=== PATIENT | male | born 1935 | race Caucasian/White ===

== ENCOUNTER → 2016-09-09 | Outpatient (CLI) | payer OTHER ==
[~2016-09-09] MED LIST: 1-ME1LIQ PO; AMLO5TAB2 PO; ASPI81TA11 OR; ASPI81TA81 PO; ATOR40TA16 PO; BRIN1SUS2 EACH EYE; CHOL5000 PO; FENO48TA PO; HYDR-3533 PO; LIPI40TA PO; LOTE10TA PO; METF500T PO; METO50TA PO; NEXI40CA PO; NEXI40GR PO; PATI1POW3 PO; POLY119S PO; TAMS0.4C4 PO; TAMS0.4C67 PO; TIMO0.5S6 OU; TRAV0.00 EACH EYE; WARF-23 PO; WARF5TAB PO
[2016-09-09 12:43] LABS: MEAN CELL VOLUME 93.5 FL (80.0-100.0); MEAN CORPUSCULAR HEMOGLOBIN 28.8 PG (27.0-34.0); MEAN CORPUSCULAR HGB CONC 30.8 % (32.0-36.0); PLATELET COUNT 540 TH/MM3 (150-450); RED BLOOD COUNT 3.21 MIL/MM3 (4.50-5.90); RED CELL DISTRIBUTION WIDTH 15.2 % (11.6-17.2); REVIEW FLAG FINAL; WHITE BLOOD COUNT 7.4 TH/MM3 (4.0-11.0)
[2016-09-09 13:03] LABS: INTERNATIONAL NORMALIZED RATIO 3.3 RATIO; PROTHROMBIN TIME - PATIENT 38.8 SEC (9.8-11.6)
[2016-09-09 13:19] LABS: BICARBONATE 18.2 MEQ/L (21.0-32.0); POTASSIUM 5.4 MEQ/L (3.5-5.1)
== END ==
LOC: CPRE 12:21
PROVIDERS: ATTEND Surgery
DX: Z01.812 Encounter for preprocedural laboratory examination (principal); N18.6 End stage renal disease
CPT/HCPCS: 36415; 80048; 85027; 85610

== ENCOUNTER 2016-09-24 06:02 | Observation (INO) | payer MEDICARE, OTHER ==
[~2016-09-24] VITALS: Ht 172.7 cm; Wt 70.1 kg
[~2016-09-24 06:02] MED LIST changes: -1-ME1LIQ PO; -ASPI81TA11 OR; -HYDR-3533 PO; -LIPI40TA PO; -LOTE10TA PO; -METF500T PO; -NEXI40CA PO; -POLY119S PO; -TAMS0.4C67 PO; -TIMO0.5S6 OU; -WARF5TAB PO
[2016-09-24] MEDS ORDERED: METOPROLOL TARTRATE 25 MG TAB PO PRN (06:15)
[2016-09-24] MEDS ORDERED: SODIUM CHLORID 0.9% 500 ML IV PRN (06:15)
[2016-09-24] MEDS ORDERED: LACTATED RINGER'S 1000 ML IV PRN (06:15)
[2016-09-24] MEDS ORDERED: CHLORHEXIDINE GLUCONATE 2 % 1 PACK (2 CLOTHS) TOPICAL PRN (06:15)
[2016-09-24] MEDS ORDERED: POVIDONE IODINE 5% (ANTISEPSIS KIT) 4 APPLICATIONS EACH NARE PRN (06:15)
[2016-09-24] MEDS ORDERED: INSULIN HUMAN REGULAR 1,000 UNITS/10 ML VIAL SQ PRN (06:15)
[2016-09-24] MEDS ORDERED: METF500T PO (06:54)
[2016-09-24 06:57] VITALS: BP 162/70; PULSE 60; RESP 20; TEMP 97.7; O2SAT 100
--- NOTE | 2016-09-24 07:00 | PD.VS.PN ---
Pre-operative Note Pre-operative diagnosis: Near ESRD, need for HD access Planned procedure: L UE access (brachiobasilic AVF) Interval History: Pt has persistent chills but no fevers; feels fatigued. Otherwise ready for surgery. Chest is clear; pacer in L chest wall, incision well-healed Heart without murmurs. No L UE rashes Labs: Hct 30 plt 540 K 5.4 repeat INR and K pending from this morning -stopped coumadin 5d ago Blood: none needed EKG: pending Orders: NPO Ancef 2g IV OCTOR Post-operative destination: PACU Operative site marked: Yes Consent: Informed consent has been obtained from Gurpreet Buenrostro. I have explained the procedure in detail and discussed the risks, benefits, and potential complications. All questions have been answered. Patient contact information: Brother [phone] Yasmany Ovalles MD Sep 24, 2016 07:00
[2016-09-24] MEDS ORDERED: HEPARIN SODIUM - IV 10,000 UNITS/10 ML VIAL ONE (07:03)
[2016-09-24] MEDS ORDERED: THROMBIN (TOPICAL) 20,000 UNIT SPRAY KIT ONE (07:03)
[2016-09-24] MEDS ORDERED: ceFAZolin 2 GM PREMIX 50 ML ONE (07:10)
[2016-09-24 07:13] LABS: PROTHROMBIN TIME - PATIENT 11.1 SEC (9.8-11.6)
[2016-09-24] MEDS ORDERED: BUPIVACAINE/EPINEPHRINE 0.5% PF 30 ML VIAL ONE (07:24)
[2016-09-24] MEDS ORDERED: fentaNYL CITRATE 250 MCG/5 ML AMP ONE (07:31)
[2016-09-24] MEDS ORDERED: DEXAMETHASONE SOD PHOS 4 MG/ML VIAL ONE (07:31)
[2016-09-24] MEDS ORDERED: MIDAZOLAM HCL 2 MG/2 ML VIAL ONE (07:31)
[2016-09-24] MEDS ORDERED: FAMOTIDINE 20 MG/2 ML VIAL ONE (07:31)
[2016-09-24] MEDS ORDERED: MORPHINE SULFATE 4 MG/ML INJ IV PRN (08:00)
[2016-09-24] MEDS ORDERED: GLUCAGON 1 MG/ML VIAL OTHER PRN (08:00)
[2016-09-24] MEDS ORDERED: PROTAMINE SULFATE 50 MG/5 ML VIAL IV ONE (08:47)
[2016-09-24] MEDS ORDERED: PROPOFOL 200 MG/20 ML AMP IV ONE (08:47)
[2016-09-24] MEDS ORDERED: ONDANSETRON HCL 4 MG/2 ML VIAL IV PUSH ONE (08:47)
[2016-09-24] MEDS: CHOLECALCIFEROL (VIT D3) 5000 UNIT CAP PO SCH (09:00)
[2016-09-24] MEDS ORDERED: DEXTROSE 50% IN WATER 50 ML SYRINGE IV PRN (09:30)
--- NOTE | 2016-09-24 09:59 | HHI.PR ---
cc: Bryan Gee MD Immediate Post Op Note Procedure Date: Sep 24, 2016 Pre Op Diagnosis: near ESRD, need for HD access Post Op Diagnosis: near ESRD, need for HD access Surgeon: Yasmany Ovalles [facility] Front Office Manager(s): Adam Underwood Procedure: LEFT brachiobasilic AVF Findings: 4mm vein, 5mm artery Additional Information: + thrill in AVF and good radial Doppler signal at conclusion of case Complications: none apparent Specimen(s) removed: none for pathology Estimated blood loss: 50mL Anesthesia: General Drains: None Fluids: 400mL IVF Patient to: PACU Patient Condition: Good Date/Time of Procedure: SEE SURGICAL CARE RECORD Yasmany Ovalles MD Sep 24, 2016 09:59
[2016-09-24] MEDS: INSULIN ASPART SUPPLEMENTAL SCALE SQ SCH ×3 (10:52→21:00)
[2016-09-24] MEDS: HYDROmorphone HCL 2 MG TAB PO PRN ×2 (11:18→15:11)
[2016-09-24] MEDS: amLODIPine BESYLATE 5 MG TAB PO SCH (11:21)
[2016-09-24] MEDS: METOPROLOL TARTRATE 50 MG TAB PO SCH ×2 (11:21→21:24)
[2016-09-24] MEDS: ASPIRIN EC 81 MG TABEC PO SCH (11:25)
[2016-09-24 11:38] VITALS: O2SAT 95
[2016-09-24 12:00] VITALS: BP 153/70; PULSE 61; RESP 16; TEMP 95.8; O2SAT 98
[2016-09-24] MEDS ORDERED: FENOFIBRATE 48 MG TAB PO SCH (12:00)
--- NOTE | 2016-09-24 13:50 | PD.CONS ---
HPI Service Nephrology Consult Requested By Dr. Ovalles Reason for Consult CKD stage 4 Primary Care Physician Evonne Calixto MD History of Present Illness Over 81-year-old white male with history of diabetes, hypertension, chronic kidney disease GFR of 16 for AV fistula creation. Patient underwent the procedure everything went well he's not recovering from the surgery. He denies any chest pain or shortness of breath he still is passing urine. Review of Systems Constitutional: COMPLAINS OF: Fatigue Musculoskeletal: COMPLAINS OF: Joint pain, Muscle aches Past Family Social History Allergies: Coded Allergies: No Known Allergies (Verified , 09/09/16) Past Medical History Diabetes Hypertension Chronic kidney disease stage IV Pacemaker insertion History of kidney stones Past Surgical History Pacemaker Partial gastrectomy Cataract Reported Medications Reported Meds & Active Scripts Active Reported Metformin (Metformin HCl) 500 Mg Tab Unknown Dose PO DAILY With a meal Veltassa (Patiromer Sorbitex Calcium) 16.8 Gm Pow 1 Gm PO DAILY Simbrinza Opth Drops (Brinzolamide-Brimonidine Opth Drops) 1-0.2% Susp 1 Drop EACH EYE Q8HR Travatan Z Opth Drops (Travoprost) 0.004 % Soln 1 Drop EACH EYE HS Aspir-81 (Aspirin) 81 Mg Tabdr 1 Tab PO DAILY Metoprolol Tartrate 50 Mg Tab 50 Mg PO BID Atorvastatin (Atorvastatin Calcium) 40 Mg Tab 40 Mg PO HS Warfarin 5 Mg Tab 5 Mg PO DAILY Tamsulosin (Tamsulosin HCl) 0.4 Mg Cap 0.4 Mg PO HS Vitamin D3 (Cholecalciferol) 5,000 Unit Cap 5,000 Units PO DAILY Nexium (Esomeprazole) 40 Mg Pkt 1 Tab PO DAILY Fenofibrate 48 Mg Tab 48 Mg PO DAILY Amlodipine (Amlodipine Besylate) 5 Mg Tab 5 Mg PO DAILY Active Ordered Medications Current Medications Medications (Trade) Dose Ordered Sig/Sy Route Start Time Stop Time Status Last Admin Lactated Ringer's 1,000 ml @ 30 mls/hr Q24H PRN IV 09/24/16 06:15 09/27/16 06:14 (NS 500 ml Inj) 500 ml @ 30 mls/hr [id number] PRN IV 09/24/16 06:15 09/27/16 06:14 09/24/16 07:00 (Roxicodone) 5 mg Q4H PRN PO 09/24/16 08:00 (Dilaudid) 2 mg Q4H PRN PO 09/24/16 08:00 09/24/16 11:18 (Morphine Inj) 2 mg Q1H PRN IV 09/24/16 08:00 (Heparin Inj) 5,000 units Q8H SQ 09/25/16 10:00 (Norvasc) 5 mg DAILY PO 09/24/16 09:00 09/24/16 11:21 (Ecotrin Ec) 81 mg DAILY PO 09/24/16 09:00 09/24/16 11:25 (Lipitor) 40 mg HS PO 09/24/16 21:00 (Vitamin D3) 5,000 units DAILY PO 09/24/16 09:00 (Tricor) 48 mg DAILY PO 09/24/16 12:00 Hold (Lopressor) 50 mg BID PO 09/24/16 09:00 09/24/16 11:21 (Flomax) 0.4 mg HS PO 09/24/16 21:00 (Coumadin) 5 mg DAILY@1600 PO 09/24/16 16:00 (D50w (Syr) Inj) 50 ml UNSCH PRN IV 09/24/16 09:30 (Glucagon Inj) 1 mg UNSCH PRN OTHER 09/24/16 08:00 (Coumadin Booklet) 1 ONCE ONCE OTHER 09/24/16 16:00 09/24/16 16:01 Family History Noncontributory Social History Denies smoking Use alcohol social Physical Exam Vital Signs Vital Signs Date Time Temp Pulse Resp B/P Pulse Ox O2 Delivery O2 Flow Rate FiO2 09/24/16 12:18 18 09/24/16 12:00 95.8 61 16 153/70 98 09/24/16 11:38 95 21 09/24/16 11:00 97.7 60 20 146/72 95 Room Air 09/24/16 10:45 60 20 148/71 95 Room Air 09/24/16 10:24 97.7 64 20 157/77 98 Nasal Cannula 2 09/24/16 06:57 97.7 60 20 162/70 100 Physical Exam GENERAL: Well-nourished, well-developed patient. SKIN: Warm and dry. HEAD: Normocephalic. EYES: No scleral icterus. No injection or drainage. NECK: Supple, trachea midline. No JVD or lymphadenopathy. CARDIOVASCULAR: Regular rate and rhythm without murmurs, gallops, or rubs. RESPIRATORY: Breath sounds equal bilaterally. No accessory muscle use. GASTROINTESTINAL: Abdomen soft, non-tender, nondistended. EXTREMITIES: No cyanosis, or edema. Incision left arm NEUROLOGICAL: Awake, alert, and oriented x 3. Non-focal. Laboratory Laboratory Tests Test 09/24/16 09/24/16 06:42 07:38 Prothrombin Time 11.1 Prothromb Time International 1.0 Ratio Blood Type A POSITIVE Antibody Screen NEGATIVE Potassium Level 5.4 Result Diagram: 09/24/16 0738 Assessment and Plan Problem List: (1) CKD (chronic kidney disease) stage 4, GFR 15-29 ml/min Plan: Patient is passing urine avoid LR His potassium was 5.4 Monitor in the hospital give Kayexalate Follow BMP AV fistula created good.thrill (2) Diabetes Plan: ckd (3) Arteriovenous fistula for hemodialysis in place, primary Plan: Bryan Benitez MD Sep 24, 2016 13:50
--- NOTE | 2016-09-24 13:59 | EKG ---
Date Performed: 09/24/2016 Time Performed: 06:55:08 PTAGE: 81 years EKG: ELECTRONIC VENTRICULAR PACEMAKER Since previous tracing, no significant change noted ABNORM AL RHYTHM ECG PREVIOUS TRACING : 12/09/2014 02.08 DOCTOR: Avtar Quinn Interpretating Date/Time 09/24/2016 13:57:05
[2016-09-24] MEDS ORDERED: SODIUM POLYSTYRENE SULFONATE SUSP 15 GM/60 ML CUP PO ONE (14:00)
[2016-09-24 16:00] VITALS: BP 144/70; PULSE 58; RESP 16; TEMP 96.8; O2SAT 97
[2016-09-24] MEDS: WARFARIN SOD 5 MG TAB PO SCH (16:38)
[2016-09-24 18:04] LABS: BICARBONATE 14.8 MEQ/L (21.0-32.0); POTASSIUM 6.3 MEQ/L (3.5-5.1)
[2016-09-24 20:00] VITALS: BP 125/64; PULSE 67; RESP 18; TEMP 97.2; O2SAT 95
[2016-09-24 21:00] VITALS: PULSE 62
[2016-09-24] MEDS: ATORVASTATIN 40 MG TAB PO SCH (21:24)
[2016-09-24] MEDS: TAMSULOSIN HCL 0.4 MG CAP PO SCH (21:24)
--- NOTE | 2016-09-24 22:42 | MP ---
cc: CLARE OVALLES MD DATE OF SURGERY 09/24/16 PREOPERATIVE DIAGNOSIS Near end-stage renal disease, needs dialysis access. POSTOPERATIVE DIAGNOSIS Near end-stage renal disease, needs dialysis access. PROCEDURE Left brachial basilic fistula. SURGEON Clare Ovalles MD EDUCATION MANAGERS SURGEON Adam Underwood ANESTHESIA General. INDICATION Mr. Buenrostro is an 81-year-old gentleman with near end-stage renal disease who presents for dialysis access creation. Preoperative imaging suggested he had an adequate left basilic vein. He is taken to the operating room for this procedure. DESCRIPTION OF PROCEDURE Informed consent was obtained from the patient. He was taken to the operating room and placed supine on the operating room table. An appropriate time-out was taken to ensure the patient's identity, operative site and planned procedure. Two grams of Ancef_ was initiated prior to skin incision, will be discontinued after single preoperative dose. Everyone in the room agreed to time-out and we proceeded. His left arm was prepped and draped. An incision was made along the medial aspect of the upper arm, carried down to the subcutaneous tissue with electrocautery. Basilic vein was identified and dissected free for several centimeters. Dissection continued in its entirety from the antecubitum up to the axilla. It appeared to be adequate size. Side branches were ligated with 3-0 silk. The vein was marked for inpatient clamped distally and the distal end was oversewn. The vein was flushed and noted to be hemostatic. The brachial artery was identified on the medial aspect of the incision and dissected free. A tunnel was then created and the vein was passed through the tunnel. The vein, however, had an area of weakening and did not pass through the tunnel intact. As such, an incision made to just elevate it in the brachial basilic location. The patient was systemically heparinized and the proximal and distal control of the brachial artery was obtained with profunda clamps and a longitudinal arteriotomy was made with an 11 blade and extended with Rock scissors. The vein was spatulated from end-to-side to the brachial artery with 6-0 Prolene suture. At the completion it was flushed and noted to be hemostatic. The clamps were released. There was a nice thrill in the fistula and a nice Doppler signal in the wrist. The tissue was closed beneath the fistula thereby bringing the fistula close to the skin and the tissue above the fistula was closed with 3-0 Polysorb and 4-0 Monocryl. The sponge and needle counts were correct at the end of the case and I was present and scrubbed for the entire procedure. MD MILLA Curry/HAILEE /5:57 PM /10:16 PM NALINI
[2016-09-25] VITALS: BP 131/66; PULSE 66; RESP 16; TEMP 97.4; O2SAT 97
[2016-09-25] MEDS: HYDROmorphone HCL 2 MG TAB PO PRN ×3 (00:24→20:06)
[2016-09-25 05:28] LABS: BICARBONATE 14.8 MEQ/L (21.0-32.0)
[2016-09-25] MEDS: INSULIN ASPART SUPPLEMENTAL SCALE SQ SCH ×4 (06:45→21:45)
--- NOTE | 2016-09-25 07:36 | PD.VS.PN ---
Subjective POD #: 1 Procedure(s): L brachiobasilic AVF Subjective/Hospital Course c/o arm swelling, worse overnight No hand pain except arm swelling Objective Vitals/I&O Date Time Temp Pulse Resp B/P Pulse Ox O2 Delivery O2 Flow Rate FiO2 09/25/16 00:00 97.4 66 16 131/66 97 09/24/16 21:00 62 09/24/16 20:00 97.2 67 18 125/64 95 09/24/16 16:11 18 09/24/16 16:00 96.8 58 16 144/70 97 09/24/16 12:00 95.8 61 16 153/70 98 09/24/16 11:38 95 21 09/24/16 11:00 97.7 60 20 146/72 95 Room Air 09/24/16 10:45 60 20 148/71 95 Room Air 09/24/16 10:24 97.7 64 20 157/77 98 Nasal Cannula 2 Exam: L UE with edematous arm from axilla to fingers No hematoma + thrill Incision ok Laboratory Laboratory Tests Test 09/24/16 09/24/16 09/25/16 07:38 16:53 03:48 Potassium Level 5.4 6.3 5.0 Sodium Level 139 140 Chloride Level 113 112 Carbon Dioxide Level 14.8 14.8 Anion Gap 11 13 Blood Urea Nitrogen 71 69 Creatinine 4.26 4.23 Estimat Glomerular Filtration 13 14 Rate Random Glucose 183 120 Calcium Level 8.4 8.2 Assessment and Plan Plan Patent AVF. I suspect the swelling is normal post surgical and exaggerated b/c of ipsilateral pacer obstructing venous return. 1. I wrapped his arm gently this morning and would like for him to get PT to maximize mobility of the arm. 2. Elevation of the arm when not using it 3. Appreciate nephrology input 4. D/c later today vs tomorrow, up to the patient. Yasmany Ovalles MD Sep 25, 2016 07:35
[2016-09-25 08:00] VITALS: BP 151/75; PULSE 67; RESP 19; TEMP 96.9; O2SAT 99
[2016-09-25] MEDS: CHOLECALCIFEROL (VIT D3) 5000 UNIT CAP PO SCH (08:36)
[2016-09-25] MEDS: amLODIPine BESYLATE 5 MG TAB PO SCH (08:36)
[2016-09-25] MEDS: METOPROLOL TARTRATE 50 MG TAB PO SCH ×2 (08:37→20:06)
[2016-09-25] MEDS: ASPIRIN EC 81 MG TABEC PO SCH (08:37)
[2016-09-25 08:40] VITALS: PULSE 63
[2016-09-25] MEDS: HEPARIN SODIUM - SQ 10,000 UNITS/ML VIAL SQ SCH ×2 (10:07→17:48)
[2016-09-25] MEDS ORDERED: ONDANSETRON HCL 4 MG/2 ML VIAL IV PUSH PRN (11:15)
--- NOTE | 2016-09-25 13:09 | HHI.NPPN ---
Subjective History of Present Illness 81 year old male with CKD 4 has AVF left arm Additional Remarks c/o nausea Review of Systems General Constitutional: Fatigue Cardiovascular Cardiac: Edema Gastrointestinal Gastrointestinal: Nausea & Vomiting Objective Data Data 09/24/16 09/25/16 19:00 07:00 Intake Total 650 ml Output Total 400 ml 400 ml Balance 250 ml -400 ml Intake Oral 220 ml IV Total 30 ml Other 400 ml Output Urine Total 350 ml 400 ml Estimated Blood Loss 50 ml # Bowel Movements 0 Vital Signs Date Time Temp Pulse Resp B/P Pulse Ox O2 Delivery O2 Flow Rate FiO2 09/25/16 08:40 63 09/25/16 08:00 96.9 67 19 151/75 99 09/25/16 00:00 97.4 66 16 131/66 97 09/24/16 21:00 62 09/24/16 20:00 97.2 67 18 125/64 95 09/24/16 16:11 18 09/24/16 16:00 96.8 58 16 144/70 97 -: 09/25/16 0348 Physical Exam General Appearance: Well Developed Neck Neck Exam: Neck Supple Pulmonary Resp Exam: Clear Bilaterally, Breath Sounds Equal Cardiology CV Exam: Regular Gastrointestinal/Abdomen GI Exam: Soft, Non-Tender, Bowel Sounds Present Extremeties Extremities Exam: Moderate Edema (left arm positive thrill) Assessment/Plan Problem List: (1) CKD (chronic kidney disease) stage 4, GFR 15-29 ml/min Plan: Patient is passing urine avoid LR He had Kayexalate K 5 give Reglan for nausea AV fistula created good.thrill (2) Diabetes Plan: ckd (3) Arteriovenous fistula for hemodialysis in place, primary Plan: Bryan Benitez MD Sep 25, 2016 13:09
[2016-09-25] MEDS: METOCLOPRAMIDE HCL 10 MG/2 ML VIAL IV PUSH SCH ×2 (14:31→20:05)
[2016-09-25 16:00] VITALS: BP 154/74; PULSE 69; RESP 20; TEMP 97.2; O2SAT 97
[2016-09-25] MEDS: WARFARIN SOD 5 MG TAB PO SCH (16:20)
[2016-09-25 20:00] VITALS: BP 110/58; PULSE 68; RESP 20; TEMP 97.8; O2SAT 96
[2016-09-25] MEDS: TAMSULOSIN HCL 0.4 MG CAP PO SCH (20:05)
[2016-09-25] MEDS: ATORVASTATIN 40 MG TAB PO SCH (20:06)
[2016-09-25 21:00] VITALS: PULSE 66
[2016-09-26] VITALS: BP 118/66; PULSE 66; RESP 20; TEMP 97.9; O2SAT 98
[2016-09-26] MEDS: HEPARIN SODIUM - SQ 10,000 UNITS/ML VIAL SQ SCH ×2 (02:10→09:43)
[2016-09-26 04:00] VITALS: BP 140/73; PULSE 70; RESP 20; TEMP 97.3; O2SAT 96
[2016-09-26] MEDS: HYDROmorphone HCL 2 MG TAB PO PRN (04:25)
[2016-09-26] MEDS: METOCLOPRAMIDE HCL 10 MG/2 ML VIAL IV PUSH SCH (04:26)
[2016-09-26] MEDS: INSULIN ASPART SUPPLEMENTAL SCALE SQ SCH ×2 (04:30→11:28)
[2016-09-26 07:30] VITALS: BP 148/72; PULSE 70; RESP 20; TEMP 96.9; O2SAT 97
[2016-09-26 09:00] VITALS: PULSE 70
--- NOTE | 2016-09-26 09:22 | PD.VS.PN ---
Subjective POD #: 2 Procedure(s): L brachiobasilic AVF Subjective/Hospital Course Pt denies nausea or vomiting Pt w/ improved swelling to LUE Pt denies hand pain B UE warm w/ motor intact Objective Vitals/I&O Date Time Temp Pulse Resp B/P Pulse Ox O2 Delivery O2 Flow Rate FiO2 09/26/16 07:30 96.9 70 20 148/72 97 09/26/16 04:00 97.3 70 20 140/73 96 09/26/16 00:00 97.9 66 20 118/66 98 09/25/16 21:00 66 09/25/16 20:00 97.8 68 20 110/58 96 09/25/16 16:00 97.2 69 20 154/74 97 09/26/16 09/26/16 09/26/16 06:59 14:59 22:59 Intake Total 120 ml 120 ml Output Total 350 ml Balance -230 ml 120 ml Exam: GENERAL: A&OX3,NAD,GCS15 SKIN: Warm and dry/ Incision to LUE intact with surgical glue/ NO Hematoma/ drainage. Erythema present at the incision line MUSCULOSKELETAL: 1+ edema LUE, UE warm w/ motor intact Bilat palpable Radial pulses + Thrill palpable near AVF Assessment and Plan Assessment: (1) Arteriovenous fistula for hemodialysis in place, primary Status: Acute Plan Patent AVF. I suspect the swelling is normal post surgical and exaggerated b/c of ipsilateral pacer obstructing venous return. Plan Pt reported he is ready to go home No Nausea/Vomiting/hand pain Pt w/ improved LUE swelling D/C this am Arranged post op follow up Reanna RINCON [facility] [phone] Discharge Planning AM Reanna Perkins Sep 26, 2016 09:22
[2016-09-26] MEDS ORDERED: OXYC-392 PO (09:26)
--- NOTE | 2016-09-26 09:33 | PD.VS.DC ---
Discharge Summary Admission Date: Sep 24, 2016 at 07:57 Discharge Date: Sep 26, 2016 Admission Diagnosis: (1) Arteriovenous fistula for hemodialysis in place, primary Discharge Diagnosis: (1) Arteriovenous fistula for hemodialysis in place, primary Status: Acute Brief History from admission Pt near ESRD, need for HD access Procedure(s): L brachiobasilic AVF Significant Findings GENERAL: A&OX3,NAD,GCS15 SKIN: Warm and dry/ Incision to LUE intact with surgical glue/ NO Hematoma/ drainage. Erythema present at the incision line MUSCULOSKELETAL: 1+ edema LUE, UE warm w/ motor intact Bilat palpable Radial pulses + Thrill palpable near AVF Laboratory Tests Test 09/24/16 09/24/16 09/25/16 07:38 16:53 03:48 Potassium Level 5.4 MEQ/L 6.3 MEQ/L (3.5-5.1) (3.5-5.1) Chloride Level 113 MEQ/L 112 MEQ/L (98-107) (98-107) Carbon Dioxide Level 14.8 MEQ/L 14.8 MEQ/L (21.0-32.0) (21.0-32.0) Blood Urea Nitrogen 71 MG/DL (7-18) 69 MG/DL (7-18) Creatinine 4.26 MG/DL 4.23 MG/DL (0.60-1.30) (0.60-1.30) Estimat Glomerular Filtration 13 ML/MIN (>89) 14 ML/MIN (>89) Rate Random Glucose 183 MG/DL 120 MG/DL (74-106) (74-106) Calcium Level 8.4 MG/DL 8.2 MG/DL (8.5-10.1) (8.5-10.1) Hospital Course: Pt is a 81/M with a hx of near ESRD and in need for HD access Pt s/p Left AVF Pt w/o complications Pt denies hand pain Allergies Coded Allergies Type Severity Reaction Last Updated Verified No Known Allergies 09/09/16 Yes /// 05:59 17:59 05:59 17:59 05:59 17:59 Intake Total 650 ml 720 ml 240 ml 240 ml Output Total 400 ml 400 ml 700 ml 575 ml 150 ml Balance 250 ml -400 ml 20 ml -335 ml 90 ml Intake Oral 220 ml 720 ml 240 ml 240 ml IV Total 30 ml Other 400 ml Output Urine Total 350 ml 400 ml 700 ml 575 ml 150 ml Estimated Blood Loss 50 ml # Bowel Movements 0 0 Laboratory Tests Test 09/24/16 09/24/16 09/24/16 09/25/16 06:42 07:38 16:53 03:48 Prothrombin Time 11.1 SEC Prothromb Time International 1.0 RATIO Ratio Blood Type A POSITIVE Antibody Screen NEGATIVE Potassium Level 5.4 MEQ/L 6.3 MEQ/L 5.0 MEQ/L Sodium Level 139 MEQ/L 140 MEQ/L Chloride Level 113 MEQ/L 112 MEQ/L Carbon Dioxide Level 14.8 MEQ/L 14.8 MEQ/L Anion Gap 11 MEQ/L 13 MEQ/L Blood Urea Nitrogen 71 MG/DL 69 MG/DL Creatinine 4.26 MG/DL 4.23 MG/DL Estimat Glomerular Filtration 13 ML/MIN 14 ML/MIN Rate Random Glucose 183 MG/DL 120 MG/DL Calcium Level 8.4 MG/DL 8.2 MG/DL Procedure Category Date Status Time Type And Screen BBK 09/24/16 Complete 06:06 Prothrombin Time / LAB 09/24/16 Complete Inr (Pt) 06:06 Electrocardiogram CAV 09/24/16 Resulted Lactated Ringer's MED 09/24/16 Complete 1000 Ml Inj (Lr 1000 M 06:15 Sodium Chlorid 0.9% MED 09/24/16 In Process 500 Ml Inj (Ns 500 M 06:15 Metoprolol Tartrate MED 09/24/16 In Process (Lopressor) 06:15 Povidone Iod 5% MED 09/24/16 In Process Antisepsis Kit 06:15 Chlorhexidine 2% MED 09/24/16 In Process Cloth (Chlorhexidine 06:15 Insulin Human Regular MED 09/24/16 In Process Inj (Novolin R Inj 06:15 Heparin Inj (Heparin MED 09/24/16 Complete Inj) 07:03 Thrombin Top Willis MED 09/24/16 Complete (Thrombin Top Willis) 07:03 Cefazolin 2 Gm Premix MED 09/24/16 Complete (Ancef 2 Gm Premix 07:10 Bupivacaine-Epi Pf MED 09/24/16 Complete 0.5% Inj (Sensorcaine 07:24 Midazolam Inj (Versed MED 09/24/16 Complete Inj) 07:31 Fentanyl Inj MED 09/24/16 Complete (Fentanyl Inj) 07:31 Dexamethasone Inj MED 09/24/16 Complete (Decadron Inj) 07:31 Famotidine Inj MED 09/24/16 Complete (Pepcid Inj) 07:31 Potassium, Serum (K) LAB 09/24/16 Complete 07:36 Place In Observation ADMITTING 09/24/16 Transmitted Code Status CODE 09/24/16 Transmitted 07:54 Manager Clinical Pharmacy / RD 09/24/16 In Process Telemetry 07:54 [address] Rachel [address] 09/24/16 In Process 07:[address] Mark SULTANA 09/24/16 In Process 07:[address] 09/24/16 In Process 07:54 Basic Metabolic Panel LAB 09/24/16 Complete (Bmp) 12:00 Basic Metabolic Panel LAB 09/25/16 Complete (Bmp) 06:00 Consult Nephrology CONS 09/24/16 Transmitted Oxycodone (Roxicodone) MED 09/24/16 In Process 08:00 Hydromorphone MED 09/24/16 In Process (Dilaudid) 08:00 Morphine Inj MED 09/24/16 In Process (Morphine Inj) 08:00 Amlodipine (Norvasc) MED 09/24/16 In Process 09:00 Aspirin Ec (Ecotrin MED 09/24/16 In Process Ec) 09:00 Atorvastatin (Lipitor) MED 09/24/16 In Process 21:00 Cholecalciferol MED 09/24/16 In Process (Vitamin D3) 09:00 Fenofibrate (Tricor) MED 09/24/16 In Process 12:00 Metoprolol Tartrate MED 09/24/16 In Process (Lopressor) 09:00 Tamsulosin (Flomax) MED 09/24/16 In Process 21:00 Warfarin (Coumadin) MED 09/24/16 In Process 16:[address] 09/24/16 In Process (Criteria) 07:57 Hypoglycemia 70 Mg/Dl RD 09/24/16 In Process Or < 07:57 Notify Criselda SULTANA 09/24/16 In Process 07:57 Glucagon Inj MED 09/24/16 In Process (Glucagon Inj) 08:00 Insulin Aspart MED 09/24/16 In Process Supplemtl Scale 11:00 (Hub Use Only)Inp Phy CONS 09/24/16 Transmitted Cons/Ref Warfarin (Coumadin) MED 09/24/16 Complete Pt Teach (Coumadin B 16:00 Dextrose 50% In [place] MED 09/24/16 In Process (Syr) Inj (D50w (Syr 09:30 Equip, Iv Pump Use Of SPD 09/24/16 Logged 11:01 Class Iv Pacu Ea 30 [facility] 09/24/16 Complete MIN [facility]16 Complete Post Anesthesia [facility]xygen [facility] 09/24/16 Complete Bedside Glucose [facility] 09/24/[address] 09/24/16 In Process ^ Sling RD 09/24/16 In Process Resp Oxygen Kemal C RSP 09/24/16 Complete Titrat 1-4 L Heparin Inj (Heparin MED 09/25/16 In Process Inj) 10:00 [facility] [place]16 Complete Diet Diabetic DIET 09/24/16 Transmitted Lunch Sodium Polysty MED 09/24/16 Complete Sulfate Liq 14:00 Sling Cradle Arm ORTHO 09/25/16 Complete Consult Pt Eval & Tx PT 09/25/16 Logged OOB 07:33 (Hub Use Only)Inp Phy CONS 09/25/16 Transmitted Cons/Ref Propofol 200 Mg/20 Ml MED 09/24/16 Complete Inj (Diprivan 200 08:47 Ondansetron Inj MED 09/24/16 Complete (Zofran Inj) 08:47 Protamine Sulfate Inj MED 09/24/16 Complete (Protamine Sulfate 08:47 Ondansetron Inj MED 09/25/16 In Process (Zofran Inj) 11:15 Metoclopramide Inj MED 09/25/16 In Process (Reglan Inj) 14:00 Attending Discharge DISCHARGE 09/26/16 Transmitted Order Vital Signs Date Time Temp Pulse Resp B/P Pulse Ox O2 Delivery O2 Flow Rate FiO2 09/26/16 07:30 96.9 70 20 148/72 97 09/26/16 04:00 97.3 70 20 140/73 96 09/26/16 00:00 97.9 66 20 118/66 98 09/25/16 21:00 66 09/25/16 20:00 97.8 68 20 110/58 96 09/25/16 16:00 97.2 69 20 154/74 97 09/25/16 08:40 63 09/25/16 08:03 19 09/25/16 08:00 96.9 67 19 151/75 99 09/25/16 00:00 97.4 66 16 131/66 97 09/24/16 21:00 62 09/24/16 20:00 97.2 67 18 125/64 95 09/24/16 16:00 96.8 58 16 144/70 97 09/24/16 12:00 95.8 61 16 153/70 98 09/24/16 11:38 95 21 09/24/16 11:00 97.7 60 20 146/72 95 Room Air 09/24/16 10:45 60 20 148/71 95 Room Air 09/24/16 10:24 97.7 64 20 157/77 98 Nasal Cannula 2 09/24/16 06:57 97.7 60 20 162/70 100 Discharge Condition: Good Discharge Disposition: Discharge Home Discharge Instructions: Leave incision open to air Elevate and Apply Marco A Wrap to Left upper extremity while swelling is present Follow up in 2W in our out patient clinic Call the office to report any new concerns- redness, drainage and or fever Reanna Perkins [facility] [phone] Any questions or concerns: Call [facility] at [facility] [phone] Reanna Perkins Sep 26, 2016 09:33
[2016-09-26] MEDS: CHOLECALCIFEROL (VIT D3) 5000 UNIT CAP PO SCH (09:43)
[2016-09-26] MEDS: METOPROLOL TARTRATE 50 MG TAB PO SCH (09:44)
[2016-09-26] MEDS: amLODIPine BESYLATE 5 MG TAB PO SCH (09:44)
[2016-09-26] MEDS: ASPIRIN EC 81 MG TABEC PO SCH (09:44)
== END 2016-09-26 12:21 | disposition home or self-care (01) ==
LOC: HSDC 06:02 → HSDI 07:57 → N07A 11:11
PROVIDERS: ADMIT Surgery; ATTEND Surgery
PROC: 03180JD Bypass Left Brachial Artery to Upper Arm Vein with Synthetic Substitute, Open Approach (ICD-10-PCS; principal; 2016-09-24 08:09)
DX: I12.9 Hypertensive chronic kidney disease with stage 1 through stage 4 chronic kidney disease, or unspecified chronic kidney disease (principal); N18.4 Chronic kidney disease, stage 4 (severe); E11.22 Type 2 diabetes mellitus with diabetic chronic kidney disease; K21.9 Gastro-esophageal reflux disease without esophagitis; E78.5 Hyperlipidemia, unspecified; H40.9 Unspecified glaucoma; E78.00 Pure hypercholesterolemia, unspecified; Z85.828 Personal history of other malignant neoplasm of skin; Z79.82 Long term (current) use of aspirin; Z87.891 Personal history of nicotine dependence; Z79.01 Long term (current) use of anticoagulants; Z86.73 Personal history of transient ischemic attack (TIA), and cerebral infarction without residual deficits; Z94.0 Kidney transplant status; Z79.899 Other long term (current) drug therapy; Z79.84 Long term (current) use of oral hypoglycemic drugs; Z95.0 Presence of cardiac pacemaker
CPT/HCPCS: 01844; 36825; 76937; 80048; 82948; 84132; 85610; 86850; 86900; 86901; 93005; 96372; 96374; 96375; 96376; 97162; G0378; G8987; G8988; J0690; J1100; J1644; J1815; J2250; J2405; J2720; J2765; J3010; J7040

== ENCOUNTER 2016-09-27 20:05 | Inpatient (IN) | payer MEDICARE ==
[~2016-09-27] VITALS: Ht 172.7 cm; Wt 72.0 kg
[~2016-09-27 20:05] MED LIST changes: +METF500T PO; +OXYC-392 PO
[2016-09-27 20:09] VITALS: BP 163/77; TEMP 98.6; O2SAT 99
[2016-09-27 20:11] VITALS: BP 163/77; PULSE 79; RESP 12; TEMP 98.6; O2SAT 99
--- NOTE | 2016-09-27 20:40 | PD ---
HPI . left arm edema Chief Complaint: Edema Time Seen by Provider: 20:40 Travel History International Travel<30 days: No Contact w/Intl Traveler<30days: No Traveled to known affect area: No History of Present Illness HPI 81 yr old male with chronic kidney disease requiring dialysis, diabetes, hypertension and hyperlipidemia here with left upper extremities edema for the past several days. Patient had a left AV fistula placed on Friday of this week. He was recently discharged from hospital yesterday. Patient tells me that he went home and noticed that his left upper extremities was getting slightly more swollen than prior to discharge. He felt some discomfort in the area and decided to take one of the Marco A wraps off. He tells me that the swelling has since subsided, however he noticed that there was some redness. He is experiencing some pain in the left upper extremity and continued swelling , therefore he decided to come into the emergency department for further evaluation. At this present time patient admits to some mild discomfort in the left upper extremity. He denies any fever or chills. He has no other complaints. He is accompanied by his and brother. PFSH Past Medical History Hx Anticoagulant Therapy: Yes Arthritis: Yes (LOWER BACK ) Asthma: No Autoimmune Disease: No Blood Disorders: No Anxiety: No Depression: No Heart Rhythm Problems: Yes (PACEMAKER LEFT CHEST WALL) Cancer: Yes (HX SKIN CXR TO NOSE ) Cardiovascular Problems: Yes (htn) High Cholesterol: Yes Chemotherapy: No Chest Pain: Yes Congestive Heart Failure: No COPD: No Cerebrovascular Accident: Yes Diabetes: Yes Diminished Hearing: Yes (BILAT HEARING AIDS) Endocrine: Yes Gastrointestinal Disorders: Yes GERD: Yes Glaucoma: Yes Genitourinary: Yes (REOCCURRENT UTI X2 ) Headaches: No Hepatitis: No Hiatal Hernia: Yes (MESH ON LEFT SIDE) Hypertension: Yes Immune Disorder: No Implanted Vascular Access Dvce: No Kidney Stones: No Musculoskeletal: No Neurologic: No Psychiatric: No Reproductive: No Respiratory: No Migraines: No Radiation Therapy: No Renal Failure: No Seizures: No Sickle Cell Disease: No Sleep Apnea: No Thyroid Disease: No Ulcer: No Past Surgical History Abdominal Surgery: Yes (GASTRECTOMY ) AICD: No Appendectomy: No Arteriovenous Shunt: No Body Medical Devices: pacemaker, mesh to left hernia Cardiac Surgery: Yes (pacemaker YOLANDE) Cholecystectomy: No Ear Surgery: No Endocrine Surgery: No Eye Surgery: Yes (left cataract removed) Genitourinary Surgery: Yes (2/3 GASTRECTOMY, lithotripsy x 2) Gynecologic Surgery: No Insulin Pump: No Joint Replacement: No Neurologic Surgery: No Oral Surgery: No Pacemaker: Yes Thoracic Surgery: Yes (see above) Other Surgery: Yes (RIGHT FOOT SURGERY- RUPTURED TENDON) Social History Alcohol Use: Yes (2-3 X WEEKLY) Tobacco Use: No Substance Use: No Allergies-Medications (Allergen,Severity, Reaction): Coded Allergies: No Known Allergies (Verified , 09/27/16) Reported Meds & Prescriptions Reported Meds & Active Scripts Active Oxycodone (Oxycodone HCl) 5 Mg Tab 5 Mg PO Q4H PRN Reported Metformin (Metformin HCl) 500 Mg Tab Unknown Dose PO DAILY With a meal Veltassa (Patiromer Sorbitex Calcium) 16.8 Gm Pow 1 Gm PO DAILY Simbrinza Opth Drops (Brinzolamide-Brimonidine Opth Drops) 1-0.2% Susp 1 Drop EACH EYE Q8HR Travatan Z Opth Drops (Travoprost) 0.004 % Soln 1 Drop EACH EYE HS Aspir-81 (Aspirin) 81 Mg Tabdr 1 Tab PO DAILY Metoprolol Tartrate 50 Mg Tab 50 Mg PO BID Atorvastatin (Atorvastatin Calcium) 40 Mg Tab 40 Mg PO HS Warfarin 5 Mg Tab 5 Mg PO DAILY Tamsulosin (Tamsulosin HCl) 0.4 Mg Cap 0.4 Mg PO HS Vitamin D3 (Cholecalciferol) 5,000 Unit Cap 5,000 Units PO DAILY Nexium (Esomeprazole) 40 Mg Pkt 1 Tab PO DAILY Fenofibrate 48 Mg Tab 48 Mg PO DAILY Amlodipine (Amlodipine Besylate) 5 Mg Tab 5 Mg PO DAILY Review of Systems General / Constitutional: No: Fever Eyes: No: Visual changes HENT: No: Headaches Cardiovascular: No: Chest Pain or Discomfort Respiratory: No: Shortness of Breath Gastrointestinal: No: Abdominal Pain Genitourinary: No: Dysuria Musculoskeletal: Positive: Pain (Left upper extremity/edema) Skin: No Rash Neurologic: No: Weakness Psychiatric: No: Depression Endocrine: No: Polydipsia Hematologic/Lymphatic: No: Easy Bruising Physical Exam Narrative GENERAL: AAO x 3, no acute distress, Well-nourished, well-developed patient. SKIN: Warm and dry. No visible rashes or bruising. HEAD: Normocephalic and atraumatic. EYES: No scleral icterus. No injection or drainage. ENT: No nasal drainage noted. Mucous membranes pink. Airway patent. NECK: Supple, trachea midline. No JVD. CARDIOVASCULAR: Regular rate and rhythm without murmurs, gallops, or rubs. RESPIRATORY: Breath sounds equal bilaterally. No accessory muscle use. No rhonchi or rales. GASTROINTESTINAL: Abdomen soft, non-tender, nondistended. EXTREMITIES: No cyanosis. left UE with edema and ecchymosis, ulnar and radial pulse normal, BACK: No obvious deformity. NEURO: CN II-12 intact, PSYCH: AAO x 3, normal affect. Data Data Last Documented VS Vital Signs Date Time Temp Pulse Resp B/P Pulse Ox O2 Delivery O2 Flow Rate FiO2 09/27/16 20:58 16 99 Room Air 09/27/16 20:11 98.6 79 163/77 Orders Us Arm Venous Doppler (09/27/16 20:52) Prothrombin Time / Inr (Pt) (09/27/16 22:53) Complete Blood Count With Diff (09/27/16 22:54) Basic Metabolic Panel (Bmp) (09/27/16 22:54) Heparin Infusion RD.Q1H (09/28/16 00:07) Heparin Inj (Heparin Inj) (09/28/16 00:15) Heparin Inj (Heparin Inj) (09/28/16 06:15) Heparin Inj (Heparin Inj) (09/28/16 06:15) Heparin-D5w Inj (Heparin-D5w Inj) (09/28/16 00:15) Cbc No Diff, Includes Plts (10/01/16 06:00) Act Partial Throm Time (Ptt) (09/28/16 07:07) Occult Blood (Hemoccult) Stool (09/28/16 00:07) Admit Order (Ed Use Only) (09/28/16 00:07) Labs Laboratory Tests Test 09/27/16 23:10 White Blood Count 9.1 TH/MM3 Red Blood Count 3.29 MIL/MM3 Hemoglobin 10.0 GM/DL Hematocrit 30.7 % Mean Corpuscular Volume 93.2 FL Mean Corpuscular Hemoglobin 30.3 PG Mean Corpuscular Hemoglobin 32.5 % Concent Red Cell Distribution Width 15.4 % Platelet Count 390 TH/MM3 Mean Platelet Volume 8.5 FL Neutrophils (%) (Auto) 72.3 % Lymphocytes (%) (Auto) 13.2 % Monocytes (%) (Auto) 11.7 % Eosinophils (%) (Auto) 1.9 % Basophils (%) (Auto) 0.9 % Neutrophils # (Auto) 6.6 TH/MM3 Lymphocytes # (Auto) 1.2 TH/MM3 Monocytes # (Auto) 1.1 TH/MM3 Eosinophils # (Auto) 0.2 TH/MM3 Basophils # (Auto) 0.1 TH/MM3 CBC Comment DIFF FINAL Differential Comment Prothrombin Time 11.6 SEC Prothromb Time International 1.0 RATIO Ratio Sodium Level 143 MEQ/L Potassium Level 5.2 MEQ/L Chloride Level 112 MEQ/L Carbon Dioxide Level 18.3 MEQ/L Anion Gap 13 MEQ/L Blood Urea Nitrogen 72 MG/DL Creatinine 4.21 MG/DL Estimat Glomerular Filtration 14 ML/MIN Rate Random Glucose 133 MG/DL Calcium Level 8.6 MG/DL [facility] Medical Decision Making Medical Screen Exam Complete: Yes Emergency Medical Condition: Yes Medical Record Reviewed: Yes Differential Diagnosis DVT, post surgical edema, less likely cellulitis Narrative Course 81-year-old male here with planes of left upper extremity edema status post AV fistula placement on Friday. Venous Doppler of the upper extremities has been ordered to rule out DVT. This estimate he does not appear cellulitic. Dr. Ferris has also seen the patient and we discussed the case. Dr. Ferris discussed case with Dr. Ovalles, if DVT negative, DC home. Patient has pacer that could be contributing to the edema. Ultrasound of the left upper extremity demonstrates a DVT in the brachial vein. Discussed with Dr. Ferris. Labs including CBC, BMP, and INR ordered. She will make further recommendations and determine patient's disposition. Diagnosis Primary Impression: Acute deep vein thrombosis (DVT) of axillary vein of left upper extremity Condition: Stable Stacey Young Sep 27, 2016 20:40
--- NOTE | 2016-09-27 20:57 | PD ---
Data Data Last Documented VS Vital Signs Date Time Temp Pulse Resp B/P Pulse Ox O2 Delivery O2 Flow Rate FiO2 09/27/16 20:11 98.6 79 12 163/77 99 Room Air Orders Us Arm Venous Doppler (09/27/16 20:52) MDM Supervised Visit with JONATAN: Yes Narrative Course I, Dr. Ferris, have reviewed the advance practice practioner's documentation and am in agreement, met with the patient face to face, made the diagnosis, and the medical decision making was done by me. *My assessment and Findings: 81-year-old male postop day #3 from left upper family AV fistula by Dr. Ovalles in preparation for dialysis here with pain, swelling and redness in the left upper extremity. Patient states that this is actually worse this morning and has gone down some this evening. He had Marco A bandage wrap on, which she removed with improved swelling. On exam, the left upper extremity is edematous most notably in the hand but extending up into the axilla. The incision is clean dry and intact. There is no evidence of induration, erythema. Patient does have ecchymosis in the left upper extremity but no evidence of infection. Will obtain duplex ultrasound to rule out DVT, and if negative patient is okay to discharge to home. Arianna Ferris MD Sep 27, 2016 20:57
--- NOTE | 2016-09-27 22:42 | RADRPT ---
EXAM DATE/TIME: 09/27/2016 22:08 [place] COMPARISON: No previous studies available for comparison. INDICATIONS : Left arm edema. MEDICAL HISTORY : Hypertension. Hypercholesterolemia. Gastroesophageal reflux disease. Cerebrovascular accident. Synco pe. Hernia, hiatal. Kidney stones. Recurrent UTIs. Arthritis. Diabetes. Liver disease. Carcino ma, skin. SURGICAL HISTORY : Cataract removal. Pacemaker. Gastrectomy. Kidney transplant. Left A-V shunt. Lithotripsy. Nephr ectomy. ENCOUNTER: Initial ACUITY: 2 day PAIN SCORE: 6/10 LOCATION: Left arm. FINDINGS: Absent flow and noncompressible brachial vein. Flow is seen in the subclavian and axillary veins. CONCLUSION: Positive for deep venous thrombosis in the brachial vein. David Joy MD on September 27, 2016 at 22:40 Board Certified Radiologist. This report was verified electronically.
[2016-09-27 23:37] LABS: AUTOMATED NEUTROPHIL # 6.6 TH/MM3 (1.8-7.7); BASOPHIL # 0.1 TH/MM3 (0-0.2); BASOPHIL % 0.9 % (0.0-2.0); EOSINOPHIL # 0.2 TH/MM3 (0-0.4); EOSINOPHIL % 1.9 % (0.0-4.0); HEMATOCRIT 30.7 % (39.0-51.0); HEMO FLAGS DIFF FINAL; LYMPH % 13.2 % (9.0-44.0); LYMPHOCYTE # 1.2 TH/MM3 (1.0-4.8); MEAN CELL VOLUME 93.2 FL (80.0-100.0); MEAN CORPUSCULAR HEMOGLOBIN 30.3 PG (27.0-34.0); MEAN CORPUSCULAR HGB CONC 32.5 % (32.0-36.0); MONO % 11.7 % (0.0-8.0); NEUT % 72.3 % (16.0-70.0); PLATELET COUNT 390 TH/MM3 (150-450); RED BLOOD COUNT 3.29 MIL/MM3 (4.50-5.90); RED CELL DISTRIBUTION WIDTH 15.4 % (11.6-17.2); WHITE BLOOD COUNT 9.1 TH/MM3 (4.0-11.0)
[2016-09-27 23:57] LABS: PROTHROMBIN TIME - PATIENT 11.6 SEC (9.8-11.6)
[2016-09-27 23:59] LABS: BICARBONATE 18.3 MEQ/L (21.0-32.0); POTASSIUM 5.2 MEQ/L (3.5-5.1)
[2016-09-28] VITALS (8 sets, daily range): BP systolic 123–177; BP diastolic 62–81; PULSE 68–86; RESP 17–18; TEMP 95.7–97; O2SAT 96–99
[2016-09-28] MEDS ORDERED: LACTULOSE SYRUP 20 GM/30 ML CUP PO PRN (00:15)
[2016-09-28] MEDS ORDERED: SODIUM CHLORIDE 0.9% FLUSH 10 ML FLUSH IV FLUSH PRN (00:15)
[2016-09-28] MEDS ORDERED: ACETAMINOPHEN 325 MG TAB PO PRN (00:15)
[2016-09-28] MEDS ORDERED: GLUCAGON 1 MG/ML VIAL OTHER PRN (00:15)
[2016-09-28] MEDS ORDERED: SENNOSIDES 8.6 MG TAB PO PRN (00:15)
[2016-09-28] MEDS ORDERED: HEPARIN SODIUM - IV 10,000 UNITS/10 ML VIAL IV ONE (00:15)
[2016-09-28] MEDS ORDERED: DEXTROSE 50% IN WATER 50 ML VIAL(D50) IV PRN (00:15)
[2016-09-28] MEDS ORDERED: BISACODYL 10 MG SUPP RECTAL PRN (00:15)
[2016-09-28] MEDS ORDERED: MORPHINE SULFATE 4 MG/ML INJ IV PRN (00:15)
[2016-09-28] MEDS ORDERED: ONDANSETRON HCL 4 MG/2 ML VIAL IVP PRN (00:15)
[2016-09-28] MEDS ORDERED: ACETAMINOPHEN/HYDROcodone 325 MG/5 MG TAB PO PRN (00:15)
[2016-09-28] MEDS: HEPARIN-D5W INJ 250 ML IV SCH ×2 (00:30→23:29)
--- NOTE | 2016-09-28 04:20 | HHI.HP ---
[facility] Evonne Calixto MD Admission Diagnosis left upper extremity DVT, stage IV renal dysfunction Diagnoses: (1) DVT (deep venous thrombosis) Diagnosis: Principal (2) Subtherapeutic anticoagulation Diagnosis: Principal (3) ESRD (end stage renal disease) Diagnosis: Principal (4) HTN (hypertension) Diagnosis: Principal (5) DM (diabetes mellitus) Diagnosis: Principal Travel History International Travel<30 Days: No Contact w/Intl Traveler <30 Da: No Traveled to Known Affected Are: No History of Present Illness This is an 81-year-old male w/ a PMH of HTN, DM, ESRD on Chronic Anticoagulation presented to the ER with complaints of left arm swelling and pain. Recent admit 09/24-09/26/16 for HD access, S/p LUE AV Fistula by Dr. Ovalles on 09/24/16 in preparation for HD. Reports LUE w/ progressive redness/swelling since time of d/c. On Coumadin, however pt unsure why, no clear indication per review of medical records. Coumadin temporarily held prior to procedure, recently restarted. On arrival, BP 163/77, HR 79, O2 sat 99% on RA, Afebrile. CBC at baseline. Chemistry essentially at baseline. INR 1.0. Doppler LUE positive for DVT. Dr. Whitney consulted by ER physician, will evaluate in a.m. Started on Heparin gtt in ER. Review of Systems Except as stated in HPI: all other systems reviewed are Neg ROS: 14 point review of systems otherwise negative. Past Family Social History Past Medical History PMH: HTN, DM, ESRD on Chronic Anticoagulation Past Surgical History PAST SURGICAL HISTORY: Gastrectomy, Pacemaker, Hernia Repair, Cataract Surgery , Lithotripsy, Right Foot Surgery, LUE AV Fistula Allergies: Coded Allergies: No Known Allergies (Verified , 09/27/16) Family History PAST FAMILY HISTORY: Reviewed, positive for DM. Social History PAST SOCIAL HISTORY: Occasional alcohol. Negative for tobacco or drugs. Physical Exam Vital Signs Vital Signs Date Time Temp Pulse Resp B/P Pulse Ox O2 Delivery O2 Flow Rate FiO2 09/28/16 01:30 96.7 86 18 163/80 96 09/28/16 00:50 72 14 156/77 98 09/27/16 20:58 16 99 Room Air 09/27/16 20:11 98.6 79 12 163/77 99 Room Air 09/27/16 20:11 Automatic Cuff 09/27/16 20:09 98.6 79 12 163/77 99 Room Air Physical Exam PE: GENERAL: Elderly male in no acute distress. HEENT: PERRLA, EOMI. No scleral icterus or conjunctival pallor. No lid lag or facial droop. CARDIOVASCULAR: Regular rate and rhythm. No obvious murmurs to auscultation. No chest tenderness to palpation. RESPIRATORY: No obvious rhonchi or wheezing. Clear to auscultation. Breath sounds equal bilaterally. GASTROINTESTINAL: Abdomen soft, non-tender, nondistended. BS normal. MUSCULOSKELETAL: Extremities without clubbing, cyanosis, or edema. No obvious deformities. LUE w/ edema/erythema, pulses intact. NEUROLOGICAL: Awake, alert and oriented x4. No focal neurologic deficits. Moving both upper and lower extremities spontaneously. Laboratory Laboratory Tests Test 09/27/16 23:10 White Blood Count 9.1 Red Blood Count 3.29 Hemoglobin 10.0 Hematocrit 30.7 Mean Corpuscular Volume 93.2 Mean Corpuscular Hemoglobin 30.3 Mean Corpuscular Hemoglobin 32.5 Concent Red Cell Distribution Width 15.4 Platelet Count 390 Mean Platelet Volume 8.5 Neutrophils (%) (Auto) 72.3 Lymphocytes (%) (Auto) 13.2 Monocytes (%) (Auto) 11.7 Eosinophils (%) (Auto) 1.9 Basophils (%) (Auto) 0.9 Neutrophils # (Auto) 6.6 Lymphocytes # (Auto) 1.2 Monocytes # (Auto) 1.1 Eosinophils # (Auto) 0.2 Basophils # (Auto) 0.1 CBC Comment DIFF FINAL Differential Comment Prothrombin Time 11.6 Prothromb Time International 1.0 Ratio Sodium Level 143 Potassium Level 5.2 Chloride Level 112 Carbon Dioxide Level 18.3 Anion Gap 13 Blood Urea Nitrogen 72 Creatinine 4.21 Estimat Glomerular Filtration 14 Rate Random Glucose 133 Calcium Level 8.6 Result Diagram: 09/27/16 2310 09/27/16 2310 Assessment and Plan Problem List: (1) DVT (deep venous thrombosis) ICD Code: I82.409 Status: Acute (2) Subtherapeutic anticoagulation ICD Code: Z51.81 Status: Acute (3) ESRD (end stage renal disease) ICD Code: N18.6 Status: Acute (4) HTN (hypertension) ICD Code: I10 Status: Acute (5) DM (diabetes mellitus) ICD Code: E11.9 Status: Acute Assessment and Plan A/P: 1. DVT: acute onset of LUE swelling/erythema, Doppler LUE w/ acute DVT, recent LUE AV Fistula on 09/24/[address] Ovalles. Vasc Sx consulted by ER physician for further evaluation, currently on Heparin gtt. Will continue Heparin and restart home Coumadin, repeat INR. 2. Subtherapeutic INR: On Coumadin as outpatient, unclear why. Coumadin held prior to recent procedure, INR currently 1.0. Will continue w/ Heparin as above , restart home Coumadin. 3. ESRD: Creatinine at baseline, preparations for starting HD, s/p LUE AV Fistula as above. 4. HTN: BP 150-160's, resume home medications, monitor BP. 5. DM: Sliding scale w/ Accu-Cheks, hold Metformin in light of renal insufficiency. 6. DVT: Acute LUE DVT, on Heparin gtt and restarted Coumadin. 7. Social work for d/c planning as needed. 8. Case discussed w/ ER physician at length. Physician Certification 2 Midnight Certification Type: Admission for Inpatient Services Order for Inpatient Services The services are ordered in accordance with Medicare regulations or non- Medicare payer requirements, as applicable. In the case of services not specified as inpatient-only, they are appropriately provided as inpatient services in accordance with the 2-midnight benchmark. Estimated LOS (days): 2 days is the estimated time the patient will need to remain in the hospital, assuming treatment plan goals are met and no additional complications. Post-Hospital Plan: Not yet determined Sonia Juárez MD Sep 28, 2016 04:20
[2016-09-28] MEDS: MAGNESIUM HYDROXIDE SUSP 30 ML CUP PO PRN (06:02)
[2016-09-28] MEDS ORDERED: HEPARIN SODIUM - IV 10,000 UNITS/10 ML VIAL IV PRN ×2 (06:15)
[2016-09-28] MEDS: INSULIN ASPART SUPPLEMENTAL SCALE SQ SCH ×4 (06:33→20:16)
[2016-09-28] MEDS: SIMBRINZA EYE EACH EYE SCH ×3 (08:00→23:21)
[2016-09-28] MEDS: FENOFIBRATE 48 MG TAB PO SCH (09:00)
[2016-09-28] MEDS: PATIROMER PO SCH (09:00)
[2016-09-28] MEDS: SODIUM CHLORIDE 0.9% FLUSH 10 ML FLUSH IV FLUSH SCH ×2 (09:00→20:16)
[2016-09-28] MEDS: METOPROLOL TARTRATE 50 MG TAB PO SCH ×2 (09:06→20:16)
[2016-09-28] MEDS: amLODIPine BESYLATE 5 MG TAB PO SCH (09:06)
[2016-09-28] MEDS: CHOLECALCIFEROL (VIT D3) 5000 UNIT CAP PO SCH (09:06)
[2016-09-28] MEDS: ASPIRIN EC 81 MG TABEC PO SCH (09:07)
[2016-09-28] MEDS: DOCUSATE SODIUM 50 MG/SENNA 8.6 MG TAB PO SCH ×2 (09:07→20:16)
[2016-09-28] MEDS: PANTOPRAZOLE SOD 40 MG DELAYED RELEASE TAB PO SCH (09:07)
[2016-09-28 09:16] LABS: APTT (PATIENT) 107.7 SEC (24.3-30.1)
--- NOTE | 2016-09-28 12:27 | HHI.PR ---
Subjective Remarks This is an 81-year-old male w/ a PMH of HTN, DM, ESRD on Chronic Anticoagulation presented to the ER with complaints of left arm swelling and pain. Recent admit 09/24-09/26/16 for HD access, S/p LUE AV Fistula by Dr. Ovalles on 09/24/16 in preparation for HD. Reports LUE w/ progressive redness/swelling since time of d/c. On Coumadin, however pt unsure why, no clear indication per review of medical records. Coumadin temporarily held prior to procedure, recently restarted. On arrival, BP 163/77, HR 79, O2 sat 99% on RA, Afebrile. CBC at baseline. Chemistry essentially at baseline. INR 1.0. Doppler LUE positive for DVT. Dr. Whitney consulted by ER physician, will evaluate in a.m. Started on Heparin gtt in ER. 09-28 AWAIT VASCULAR SURGERY INPUT Patient remains on heparin drip Will need to reload Coumadin since he has the positive DVT in left upper extremity Objective Vitals Vital Signs Date Time Temp Pulse Resp B/P Pulse Ox O2 Delivery O2 Flow Rate FiO2 09/28/16 08:00 95.7 78 17 123/62 98 09/28/16 04:18 97.0 70 17 125/72 98 09/28/16 01:30 96.7 86 18 163/80 96 09/28/16 00:50 72 14 156/77 98 09/27/16 20:58 16 99 Room Air 09/27/16 20:11 98.6 79 12 163/77 99 Room Air 09/27/16 20:11 Automatic Cuff 09/27/16 20:09 98.6 79 12 163/77 99 Room Air I/O 09/27/16 09/27/16 09/27/16 09/28/16 09/28/16 09/28/16 06:59 14:59 22:59 06:59 14:59 22:59 Intake Total 300 ml Output Total 325 ml Balance -25 ml Intake Oral 240 ml IV Total 60 ml Output Urine Total 325 ml # Bowel Movements 0 Result Diagram: 09/27/16 2310 09/27/16 2310 Other Results Laboratory Tests Test 09/27/16 09/28/16 23:10 08:15 White Blood Count 9.1 TH/MM3 Red Blood Count 3.29 MIL/MM3 Hemoglobin 10.0 GM/DL Hematocrit 30.7 % Mean Corpuscular Volume 93.2 FL Mean Corpuscular Hemoglobin 30.3 PG Mean Corpuscular Hemoglobin 32.5 % Concent Red Cell Distribution Width 15.4 % Platelet Count 390 TH/MM3 Mean Platelet Volume 8.5 FL Neutrophils (%) (Auto) 72.3 % Lymphocytes (%) (Auto) 13.2 % Monocytes (%) (Auto) 11.7 % Eosinophils (%) (Auto) 1.9 % Basophils (%) (Auto) 0.9 % Neutrophils # (Auto) 6.6 TH/MM3 Lymphocytes # (Auto) 1.2 TH/MM3 Monocytes # (Auto) 1.1 TH/MM3 Eosinophils # (Auto) 0.2 TH/MM3 Basophils # (Auto) 0.1 TH/MM3 CBC Comment DIFF FINAL Differential Comment Prothrombin Time 11.6 SEC Prothromb Time International 1.0 RATIO Ratio Sodium Level 143 MEQ/L Potassium Level 5.2 MEQ/L Chloride Level 112 MEQ/L Carbon Dioxide Level 18.3 MEQ/L Anion Gap 13 MEQ/L Blood Urea Nitrogen 72 MG/DL Creatinine 4.21 MG/DL Estimat Glomerular Filtration 14 ML/MIN Rate Random Glucose 133 MG/DL Calcium Level 8.6 MG/DL Activated Partial 107.7 SEC Thromboplast Time Imaging Last Impressions Upper Extremity Ultrasound 09/27/162051 Signed Impressions: Service Date/Time: Tuesday, September 27, 2016 22:08 - CONCLUSION: Positive for deep venous thrombosis in the brachial vein. David Joy MD Objective Remarks GENERAL: AWAKE ALERT AND ORIENTED SKIN: Warm and dry. LEFT UE WITH SWELLING AND WARMTH- GOOD THRILL AND BRUIT IN FISTULA HEAD: Atraumatic. Normocephalic. EYES: Pupils equal and round. No scleral icterus. No injection or drainage. EOMI ENT: No nasal bleeding or discharge. Mucous membranes pink and moist. TONGUE MIDLINE NECK: Trachea midline. No JVD. CARDIOVASCULAR: Regular rate and rhythm. S1,S2 NO S3 OR S4 NO HEAVE OR THRILL RESPIRATORY: No accessory muscle use. Clear to auscultation. Breath sounds equal bilaterally. GASTROINTESTINAL: Abdomen soft, non-tender, nondistended. Hepatic and splenic margins not palpable. MUSCULOSKELETAL: Extremities without clubbing, cyanosis, or edema. No obvious deformities. Left arm with swelling in forearm region and good thrill and bruit around fistulatender left forearmpositive DVT NEUROLOGICAL: Awake and alert. No obvious cranial nerve deficits. Motor grossly within normal limits. Five out of 5 muscle strength in the arms and legs. Normal speech.LEFT ARM WITH SWELLING IN FOREARM REGION AND GOOD THRILL AND BRUIT AROUND FISTULA- TENDER LEFT FOREARM +DVT PSYCHIATRIC: Appropriate mood and affect; insight and judgment normal. Medications and IVs Active Medications Acetaminophen (Tylenol) 650 mg Q6H PRN PO; Start 09/28/16 at 00:15 Acetaminophen/ Hydrocodone Bitart ([place] 5-325 Mg) 1 tab Q4H PRN PO; Start 09/28/16 at 00:15; Stop 09/28/16 at 00:16; Status DC Amlodipine Besylate (Norvasc) 5 mg DAILY PO Last administered on 09/28/16 09:06 ; Admin Dose 5 MG; Start 09/28/16 at 09:00 Aspirin (Ecotrin Ec) 81 mg DAILY PO Last administered on 09/28/16 09:07; Admin Dose 81 MG; Start 09/28/16 at 09:00 Atorvastatin Calcium (Lipitor) 40 mg HS PO; Start 09/28/16 at 21:00 Bisacodyl (Dulcolax Supp) 10 mg DAILY PRN RECTAL; Start 09/28/16 at 00:15 Cholecalciferol (Vitamin D3) 5,000 units DAILY PO Last administered on 09/28/16 09:06; Admin Dose 5,000 UNITS; Start 09/28/16 at 09:00 Dextrose (D50w (Vial) Inj) 50 ml UNSCH PRN IV; Start 09/28/16 at 00:15 Fenofibrate (Tricor) 48 mg DAILY PO Last administered on 09/28/16 09:00; Admin Dose 48 MG; Start 09/28/16 at 09:00 Glucagon (Glucagon Inj) 1 mg UNSCH PRN OTHER; Start 09/28/16 at 00:15 Heparin Sodium (Porcine) (Heparin Inj) 5,000 units UNSCH PRN IV; Start 09/28/16 at 06:15 Heparin Sodium (Porcine) (Heparin Inj) 6,000 units ONCE ONCE IV Last administered on 09/28/16 00:27; Admin Dose 6,000 UNITS; Start 09/28/16 at 00:15; Stop 09/28/16 at 00:16; Status DC Heparin Sodium (Porcine) 2500 units 2,500 units UNSCH PRN IV; Start 09/28/16 at 06:15 Heparin Sodium/ Dextrose (Heparin-D5W Inj) 250 ml @ 0 mls/hr TITRATE IV Last administered on 09/28/16 00:30; Admin Dose 0 MLS/HR; Start 09/28/16 at 00:15 Lactulose (Lactulose Liq) 30 ml DAILY PRN PO; Start 09/28/16 at 00:15 Latanoprost (Xalatan 0.005% Opth Soln) 1 drop HS EACH EYE; Start 09/28/16 at 21: 00 Magnesium Hydroxide (Milk Of Magnesia Liq) 30 ml Q12H PRN PO Last administered on 09/28/16 06:02; Admin Dose 30 ML; Start 09/28/16 at 00:15 Metoprolol Tartrate (Lopressor) 50 mg BID PO Last administered on 09/28/16 09:06 ; Admin Dose 50 MG; Start 09/28/16 at 09:00 Morphine Sulfate (Morphine Inj) 2 mg Q3H PRN IV; Start 09/28/16 at 00:15 Ondansetron HCl (Zofran Inj) 4 mg Q6H PRN IVP; Start 09/28/16 at 00:15 Oxycodone HCl (Roxicodone) 5 mg Q4H PRN PO; Start 09/28/16 at 00:15 Pantoprazole Sodium (Protonix) 40 mg DAILY PO Last administered on 09/28/16 09: 07; Admin Dose 40 MG; Start 09/28/16 at 09:00 Patient Own Medication PT OWN MED: SIMBRI... Q8H EACH EYE; Start 09/28/16 at 08: 00 Patient Own Medication PT OWN MED: VELTASS... DAILY PO; Start 09/28/16 at 09:00 Senna/Docusate Sodium (Khadijah-Colace) 1 tab BID PO Last administered on 09/28/16 09:07; Admin Dose 1 TAB; Start 09/28/16 at 09:00 Sennosides (Senokot) 17.2 mg Q12H PRN PO Last administered on 09/28/16 06:02; Admin Dose 17.2 MG; Start 09/28/16 at 00:15 Sodium Chloride (NS Flush) 2 ml BID IV FLUSH Last administered on 09/28/16 09:00 ; Admin Dose 2 ML; Start 09/28/16 at 09:00 Sodium Chloride (NS Flush) 2 ml UNSCH PRN IV FLUSH; Start 09/28/16 at 00:15 Tamsulosin HCl (Flomax) 0.4 mg HS PO; Start 09/28/16 at 21:00 Warfarin Sodium (Coumadin) 5 mg DAILY@16 PO; Start 09/28/16 at 16:00 Urinary Catheter: No Vascular Central Line Catheter: No A/P Problem List: (1) DVT (deep venous thrombosis) ICD Code: I82.409 Status: Acute (2) Subtherapeutic anticoagulation ICD Code: Z51.81 Status: Acute (3) ESRD (end stage renal disease) ICD Code: N18.6 Status: Acute (4) HTN (hypertension) ICD Code: I10 Status: Acute (5) DM (diabetes mellitus) ICD Code: E11.9 Status: Acute Assessment and Plan 1. DVT: acute onset of LUE swelling/erythema, Doppler LUE w/ acute DVT, recent LUE AV Fistula on 09/24/[address] Ovalles. Vasc Sx consulted by ER physician for further evaluation, currently on Heparin gtt. Will continue Heparin and restart home Coumadin, repeat INR. Age to be therapeutic before discharge 2. Subtherapeutic INR: On Coumadin as outpatient, unclear why. Coumadin held prior to recent procedure, INR currently 1.0. Will continue w/ Heparin as above , restart home Coumadin. 3. ESRD: Creatinine at baseline, preparations for starting HD, s/p LUE AV Fistula as above. 4. HTN: BP 150-160's, resume home medications, monitor BP. 5. DM: Sliding scale w/ Accu-Cheks, hold Metformin in light of renal insufficiency. Sliding scale coverage 6. DVT: Acute LUE DVT, on Heparin gtt and restarted Coumadin. 7. Social work for d/c planning as needed. 8. Case discussed w/ ER physician at length. Florencio Santacruz DO Sep 28, 2016 12:27
[2016-09-28] MEDS ORDERED: WARFARIN SOD 5 MG TAB PO SCH (16:00)
[2016-09-28 16:39] LABS: APTT (PATIENT) 57.9 SEC (24.3-30.1); INTERNATIONAL NORMALIZED RATIO 1.2 RATIO; PROTHROMBIN TIME - PATIENT 12.9 SEC (9.8-11.6)
[2016-09-28] MEDS: TAMSULOSIN HCL 0.4 MG CAP PO SCH (20:16)
[2016-09-28] MEDS: ATORVASTATIN 40 MG TAB PO SCH (20:16)
[2016-09-28] MEDS: LATANOPROST 0.005% OPHT SOLN 2.5 ML BTL EACH EYE SCH (20:19)
[2016-09-29 00:11] VITALS: BP 137/76; PULSE 76; RESP 17; TEMP 97; O2SAT 96
[2016-09-29 01:21] LABS: APTT (PATIENT) 43.7 SEC (24.3-30.1)
[2016-09-29 04:09] VITALS: BP 148/68; PULSE 68; RESP 17; TEMP 98; O2SAT 97
[2016-09-29] MEDS: INSULIN ASPART SUPPLEMENTAL SCALE SQ SCH ×4 (05:58→21:00)
[2016-09-29 08:00] VITALS: BP 130/72; PULSE 76; RESP 18; TEMP 97; O2SAT 98
[2016-09-29] MEDS: SIMBRINZA EYE EACH EYE SCH ×3 (08:00→23:15)
[2016-09-29] MEDS: PANTOPRAZOLE SOD 40 MG DELAYED RELEASE TAB PO SCH (08:26)
[2016-09-29] MEDS: METOPROLOL TARTRATE 50 MG TAB PO SCH ×2 (08:26→21:11)
[2016-09-29] MEDS: ASPIRIN EC 81 MG TABEC PO SCH (08:26)
[2016-09-29] MEDS: amLODIPine BESYLATE 5 MG TAB PO SCH (08:26)
[2016-09-29] MEDS: DOCUSATE SODIUM 50 MG/SENNA 8.6 MG TAB PO SCH ×2 (08:26→21:11)
[2016-09-29] MEDS: FENOFIBRATE 48 MG TAB PO SCH (08:26)
[2016-09-29] MEDS: CHOLECALCIFEROL (VIT D3) 5000 UNIT CAP PO SCH (08:26)
[2016-09-29 08:27] LABS: AUTOMATED NEUTROPHIL # 7.7 TH/MM3 (1.8-7.7); BASOPHIL # 0.1 TH/MM3 (0-0.2); BASOPHIL % 0.5 % (0.0-2.0); EOSINOPHIL # 0.3 TH/MM3 (0-0.4); EOSINOPHIL % 2.7 % (0.0-4.0); HEMATOCRIT 32.6 % (39.0-51.0); HEMO FLAGS DIFF FINAL; LYMPH % 9.6 % (9.0-44.0); MEAN CELL VOLUME 91.9 FL (80.0-100.0); MEAN CORPUSCULAR HEMOGLOBIN 29.3 PG (27.0-34.0); MEAN CORPUSCULAR HGB CONC 31.8 % (32.0-36.0); MONO % 11.2 % (0.0-8.0); PLATELET COUNT 417 TH/MM3 (150-450); RED BLOOD COUNT 3.54 MIL/MM3 (4.50-5.90); RED CELL DISTRIBUTION WIDTH 15.8 % (11.6-17.2); WHITE BLOOD COUNT 10.1 TH/MM3 (4.0-11.0)
[2016-09-29 08:33] LABS: APTT (PATIENT) 52.1 SEC (24.3-30.1); INTERNATIONAL NORMALIZED RATIO 1.1 RATIO; PROTHROMBIN TIME - PATIENT 12.7 SEC (9.8-11.6)
[2016-09-29 08:49] LABS: ANION GAP 9 MEQ/L (5-15); AST (GOT) 16 U/L (15-37); BICARBONATE 19.7 MEQ/L (21.0-32.0); BLOOD UREA NITROGEN 69 MG/DL (7-18); CHLORIDE 111 MEQ/L (98-107); GLOMERULAR FILTRATION RATE 16 ML/MIN (>89); MAGNESIUM 2.5 MG/DL (1.5-2.5); POTASSIUM 4.9 MEQ/L (3.5-5.1); SODIUM (NA) 140 MEQ/L (136-145)
[2016-09-29 08:59] LABS: ALKALINE PHOSPHATASE 69 U/L (45-117); ALT (GPT) 14 U/L (12-78); FREE T4 1.02 NG/DL (0.76-1.46); TOTAL BILIRUBIN ADULT 0.3 MG/DL (0.2-1.0)
[2016-09-29] MEDS: PATIROMER PO SCH ×2 (09:00→16:47)
[2016-09-29] MEDS: SODIUM CHLORIDE 0.9% FLUSH 10 ML FLUSH IV FLUSH SCH ×2 (09:00→21:00)
--- NOTE | 2016-09-29 09:03 | HHI.PR ---
Subjective Remarks This is an 81-year-old male w/ a PMH of HTN, DM, ESRD on Chronic Anticoagulation presented to the ER with complaints of left arm swelling and pain. Recent admit 09/24-09/26/16 for HD access, S/p LUE AV Fistula by Dr. Ovalles on 09/24/16 in preparation for HD. Reports LUE w/ progressive redness/swelling since time of d/c. On Coumadin, however pt unsure why, no clear indication per review of medical records. Coumadin temporarily held prior to procedure, recently restarted. On arrival, BP 163/77, HR 79, O2 sat 99% on RA, Afebrile. CBC at baseline. Chemistry essentially at baseline. INR 1.0. Doppler LUE positive for DVT. Dr. Whitney consulted by ER physician, will evaluate in a.m. Started on Heparin gtt in ER. 09-28 AWAIT VASCULAR SURGERY INPUT Patient remains on heparin drip Will need to reload Coumadin since he has the positive DVT in left upper extremity 09-29 AWAIT VASCULAR INPUT RELOAD COUMADIN INCREASE TO 10MG PO DAILY HAS POSITIVE DVT IN LEFT UPPER EXTREMITY PATIENT THINKS LESS SWELLING IN LEFT UPPER EXTREMITY ON HEPARIN DRIP DW PT AND RN Objective Vitals Vital Signs Date Time Temp Pulse Resp B/P Pulse Ox O2 Delivery O2 Flow Rate FiO2 09/29/16 08:00 97.0 76 18 130/72 98 09/29/16 04:09 98.0 68 17 148/68 97 09/29/16 00:11 97.0 76 17 137/76 96 09/28/16 21:00 70 17 149/69 98 09/28/16 20:50 96.9 77 17 177/81 98 09/28/16 16:00 96.1 72 17 149/74 99 09/28/16 11:19 96.2 68 17 156/70 98 I/O 09/28/16 09/28/16 09/28/16 09/29/16 09/29/16 09/29/16 07:00 15:00 23:00 07:00 15:00 23:00 Intake Total 300 ml 720 ml 380 ml 320 ml Output Total 325 ml 600 ml 700 ml Balance -25 ml 720 ml -220 ml -380 ml Intake Oral 240 ml 720 ml 240 ml 240 ml IV Total 60 ml 140 ml 80 ml Output Urine Total 325 ml 600 ml 700 ml # Voids 2 # Bowel Movements 0 1 0 0 Result Diagram: 09/29/16 0750 09/29/16 0750 Other Results Laboratory Tests Test 09/28/16 09/29/16 09/29/16 15:41 00:35 07:50 Prothrombin Time 12.9 SEC 12.7 SEC Prothromb Time International 1.2 RATIO 1.1 RATIO Ratio Activated Partial 57.9 SEC 43.7 SEC 52.1 SEC Thromboplast Time White Blood Count 10.1 TH/MM3 Red Blood Count 3.54 MIL/MM3 Hemoglobin 10.4 GM/DL Hematocrit 32.6 % Mean Corpuscular Volume 91.9 FL Mean Corpuscular Hemoglobin 29.3 PG Mean Corpuscular Hemoglobin 31.8 % Concent Red Cell Distribution Width 15.8 % Platelet Count 417 TH/MM3 Mean Platelet Volume 8.5 FL Neutrophils (%) (Auto) 76.0 % Lymphocytes (%) (Auto) 9.6 % Monocytes (%) (Auto) 11.2 % Eosinophils (%) (Auto) 2.7 % Basophils (%) (Auto) 0.5 % Neutrophils # (Auto) 7.7 TH/MM3 Lymphocytes # (Auto) 1.0 TH/MM3 Monocytes # (Auto) 1.1 TH/MM3 Eosinophils # (Auto) 0.3 TH/MM3 Basophils # (Auto) 0.1 TH/MM3 CBC Comment DIFF FINAL Differential Comment Sodium Level 140 MEQ/L Potassium Level 4.9 MEQ/L Chloride Level 111 MEQ/L Carbon Dioxide Level 19.7 MEQ/L Anion Gap 9 MEQ/L Blood Urea Nitrogen 69 MG/DL Creatinine 3.67 MG/DL Estimat Glomerular Filtration 16 ML/MIN Rate Random Glucose 112 MG/DL Calcium Level 8.6 MG/DL Magnesium Level 2.5 MG/DL Aspartate Amino Transf 16 U/L (AST/SGOT) Albumin 2.8 GM/DL Imaging Last Impressions Upper Extremity Ultrasound 09/27/162051 Signed Impressions: Service Date/Time: Tuesday, September 27, 2016 22:08 - CONCLUSION: Positive for deep venous thrombosis in the brachial vein. David Joy MD Objective Remarks GENERAL: AWAKE ALERT AND ORIENTED SKIN: Warm and dry. LEFT UE WITH LESS SWELLING AND WARMTH- GOOD THRILL AND BRUIT IN FISTULA HEAD: Atraumatic. Normocephalic. EYES: Pupils equal and round. No scleral icterus. No injection or drainage. EOMI ENT: No nasal bleeding or discharge. Mucous membranes pink and moist. TONGUE MIDLINE NECK: Trachea midline. No JVD. CARDIOVASCULAR: Regular rate and rhythm. S1,S2 NO S3 OR S4 NO HEAVE OR THRILL RESPIRATORY: No accessory muscle use. Clear to auscultation. Breath sounds equal bilaterally. GASTROINTESTINAL: Abdomen soft, non-tender, nondistended. Hepatic and splenic margins not palpable. MUSCULOSKELETAL: Extremities without clubbing, cyanosis, or edema. No obvious deformities. Left arm with swelling in forearm region and good thrill and bruit around fistulatender left forearmpositive DVT NEUROLOGICAL: Awake and alert. No obvious cranial nerve deficits. Motor grossly within normal limits. Five out of 5 muscle strength in the arms and legs. Normal speech.LEFT ARM WITH LESS SWELLING IN FOREARM REGION AND GOOD THRILL AND BRUIT AROUND FISTULA- TENDER LEFT FOREARM +DVT PSYCHIATRIC: Appropriate mood and affect; insight and judgment normal. Medications and IVs Current Medications Heparin Sodium (Porcine) (Heparin Inj) 6,000 units ONCE ONCE IV Last administered on 09/28/16t 00:27; Start 09/28/16 at 00:15; Stop 09/28/16 at 00:16; Status DC Heparin Sodium (Porcine) (Heparin Inj) 5,000 units UNSCH PRN IV APTT LESS THAN 25; Start 09/28/16 at 06:15 Heparin Sodium (Porcine) 2500 units 2,500 units UNSCH PRN IV APTT 25 TO 39; Start 09/28/16 at 06:15 Heparin Sodium/ Dextrose (Heparin-D5W Inj) 250 ml @ 0 mls/hr TITRATE IV Last administered on 09/28/16t 23:29; Start 09/28/16 at 00:15 Dextrose (D50w (Vial) Inj) 50 ml UNSCH PRN IV HYPOGLYCEMIA-SEE COMMENTS; Start 09/28/16 at 00:15 Glucagon (Glucagon Inj) 1 mg UNSCH PRN OTHER HYPOGLYCEMIA-SEE COMMENTS; Start 09/28/16 at 00:15 Insulin Aspart (NovoLOG SUPPLEMENTAL SCALE) 1 ACHS SLIDING SCALE SQ ; Start 09/28/16 at 07:00 Sodium Chloride (NS Flush) 2 ml UNSCH PRN IV FLUSH FLUSH AFTER USING IV ACCESS ; Start 09/28/16 at 00:15 Sodium Chloride (NS Flush) 2 ml BID IV FLUSH Last administered on 09/28/16 09: 00; Start 09/28/16 at 09:00 Ondansetron HCl (Zofran Inj) 4 mg Q6H PRN IVP NAUSEA OR VOMITING; Start at 00:15 Acetaminophen (Tylenol) 650 mg Q6H PRN PO FEVER; Start 09/28/16 at 00:15 Acetaminophen/ Hydrocodone Bitart ([place] 5-325 Mg) 1 tab Q4H PRN PO PAIN SCALE 3 TO 5; Start 09/28/16 at 00:15; Stop 09/28/16 at 00:16; Status DC Morphine Sulfate (Morphine Inj) 2 mg Q3H PRN IV Pain 6-10; Start 09/28/16 at 00: 15 Senna/Docusate Sodium (Khadijah-Colace) 1 tab BID PO Last administered on 09/29/16 08:26; Start 09/28/16 at 09:00 Magnesium Hydroxide (Milk Of Magnesia Liq) 30 ml Q12H PRN PO MILD - MODERATE CONSTIPATION Last administered on 09/28/16 06:02; Start 09/28/16 at 00:15 Sennosides (Senokot) 17.2 mg Q12H PRN PO MODERATE - SEVERE CONSTIPATION Last administered on 09/28/16 06:02; Start 09/28/16 at 00:15 Bisacodyl (Dulcolax Supp) 10 mg DAILY PRN RECTAL SEVERE CONSITIPATION; Start at 00:15 Lactulose (Lactulose Liq) 30 ml DAILY PRN PO SEVERE CONSITIPATION; Start at 00:15 Amlodipine Besylate (Norvasc) 5 mg DAILY PO Last administered on 09/29/16 08:26 ; Start 09/28/16 at 09:00 Aspirin (Ecotrin Ec) 81 mg DAILY PO Last administered on 09/29/16 08:26; Start 09/28/16 at 09:00 Atorvastatin Calcium (Lipitor) 40 mg HS PO Last administered on 09/28/16 20:16 ; Start 09/28/16 at 21:00 Cholecalciferol (Vitamin D3) 5,000 units DAILY PO Last administered on 08:26; Start 09/28/16 at 09:00 Fenofibrate (Tricor) 48 mg DAILY PO Last administered on 09/29/16 08:26; Start 09/28/16 at 09:00 Metoprolol Tartrate (Lopressor) 50 mg BID PO Last administered on 09/29/16 08: 26; Start 09/28/16 at 09:00 Oxycodone HCl (Roxicodone) 5 mg Q4H PRN PO PAIN SCALE 1 TO 5 Last administered on 09/28/16 23:26; Start 09/28/16 at 00:15 Tamsulosin HCl (Flomax) 0.4 mg HS PO Last administered on 09/28/16 20:16; Start 09/28/16 at 21:00 Warfarin Sodium (Coumadin) 5 mg DAILY@16 PO Last administered on 09/28/16 16:27 ; Start 09/28/16 at 16:00; Stop 09/29/16 at 08:40; Status DC Patient Own Medication PT OWN MED: SIMBRI... Q8H EACH EYE ; Start 09/28/16 at 08: 00 Pantoprazole Sodium (Protonix) 40 mg DAILY PO HRT Last administered on 09/29/16 08:26; Start 09/28/16 at 09:00 Patient Own Medication PT OWN MED: VELTASS... DAILY PO ; Start 09/28/16 at 09:00 Latanoprost (Xalatan 0.005% Opt Soln) 1 drop HS EACH EYE Glaucoma; Start at 21:00 Warfarin Sodium (Coumadin) 10 mg DAILY@16 PO ; Start 09/29/16 at 16:00 Patient Medication Teaching (Coumadin Booklet) 1 ONCE ONCE .XX ; Start 09/29/16 at 16:00; Stop 09/29/16 at 16:01 Urinary Catheter: No Vascular Central Line Catheter: No A/P Problem List: (1) DVT (deep venous thrombosis) ICD Code: I82.409 Status: Acute Plan: rELOAD cOUMADIN AND AWAIT VASCULAR SURGERY (2) Subtherapeutic anticoagulation ICD Code: Z51.81 Status: Acute Plan: Reload Coumadin and await vascular surgery (3) ESRD (end stage renal disease) ICD Code: N18.6 Status: Acute Plan: Monitor labs (4) HTN (hypertension) ICD Code: I10 Status: Acute Plan: hOME MEDICATIONS (5) DM (diabetes mellitus) ICD Code: E11.9 Status: Acute Plan: fOLLOW SUGARS Assessment and Plan 1. DVT: acute onset of LUE swelling/erythema, Doppler LUE w/ acute DVT, recent LUE AV Fistula on 09/24/[address] Ovalles. Vasc Sx consulted by ER physician for further evaluation, currently on Heparin gtt. Will continue Heparin and restart home Coumadin, repeat INR. Needs to be therapeutic before discharge 2. Subtherapeutic INR: On Coumadin as outpatient, unclear why. Coumadin held prior to recent procedure, INR currently 1.1. Will continue w/ Heparin as above , restart home Coumadin. Give 10 mg by mouth daily 3. ESRD: Creatinine at baseline, preparations for starting HD, s/p LUE AV Fistula as above. 4. HTN: BP 150-160's, resume home medications, monitor BP. 5. DM: Sliding scale w/ Accu-Cheks, hold Metformin in light of renal insufficiency. Sliding scale coverage 6. DVT: Acute LUE DVT, on Heparin gtt and restarted Coumadin. Continue on Coumadin 10 mg daily since remained subtherapeutic continue on heparin drip 7. Social work for d/c planning as needed. 8. Case discussed w/ ER physician at length. Discussed with patient and RN Problem Qualifiers (1) DVT (deep venous thrombosis): Qualified Code: I82.622 - Acute deep vein thrombosis (DVT) of brachial vein of left upper extremity Florencio Santacruz DO Sep 29, 2016 09:03
--- NOTE | 2016-09-29 11:48 | PD.VS.PN ---
Subjective Subjective/Hospital Course Pt well known to me, who underwent uncomplicated L brachiobasilic AVF on 09/24 He was readmitted through the ED with L UE swelling and new brachial vein DVT Swelling has improved over past day. Not on HD Objective Vitals/I&O Date Time Temp Pulse Resp B/P Pulse Ox O2 Delivery O2 Flow Rate FiO2 09/29/16 08:00 97.0 76 18 130/72 98 09/29/16 04:09 98.0 68 17 148/68 97 09/29/16 00:11 97.0 76 17 137/76 96 09/28/16 21:00 70 17 149/69 98 09/28/16 20:50 96.9 77 17 177/81 98 09/28/16 16:00 96.1 72 17 149/74 99 09/29/16 09/29/16 09/29/16 07:00 15:00 23:00 Intake Total 320 ml Output Total 700 ml Balance -380 ml Physical Exam L UE incision c/d/i + thrill Hand ok swelling from axilla to fingers Laboratory Laboratory Tests Test 09/28/16 09/29/16 09/29/16 15:41 00:35 07:50 Prothrombin Time 12.9 12.7 Prothromb Time International 1.2 1.1 Ratio Activated Partial 57.9 43.7 52.1 Thromboplast Time White Blood Count 10.1 Red Blood Count 3.54 Hemoglobin 10.4 Hematocrit 32.6 Mean Corpuscular Volume 91.9 Mean Corpuscular Hemoglobin 29.3 Mean Corpuscular Hemoglobin 31.8 Concent Red Cell Distribution Width 15.8 Platelet Count 417 Mean Platelet Volume 8.5 Neutrophils (%) (Auto) 76.0 Lymphocytes (%) (Auto) 9.6 Monocytes (%) (Auto) 11.2 Eosinophils (%) (Auto) 2.7 Basophils (%) (Auto) 0.5 Neutrophils # (Auto) 7.7 Lymphocytes # (Auto) 1.0 Monocytes # (Auto) 1.1 Eosinophils # (Auto) 0.3 Basophils # (Auto) 0.1 CBC Comment DIFF FINAL Differential Comment Sodium Level 140 Potassium Level 4.9 Chloride Level 111 Carbon Dioxide Level 19.7 Anion Gap 9 Blood Urea Nitrogen 69 Creatinine 3.67 Estimat Glomerular Filtration 16 Rate Random Glucose 112 Calcium Level 8.6 Phosphorus Level 3.8 Magnesium Level 2.5 Total Bilirubin 0.3 Aspartate Amino Transf 16 (AST/SGOT) Alanine Aminotransferase 14 (ALT/SGPT) Alkaline Phosphatase 69 Total Protein 7.0 Albumin 2.8 Free Thyroxine 1.02 Thyroid Stimulating Hormone 0.419 3rd Gen Imaging Last 48 hours Impressions Upper Extremity Ultrasound 09/27/162051 Signed Impressions: Service Date/Time: Tuesday, September 27, 2016 22:08 - CONCLUSION: Positive for deep venous thrombosis in the brachial vein. David Joy MD Assessment and Plan Plan L UE swelling likely most related to AVF ipsilateral to pacer, which is probably occluding/narrowing subclavian vein. Should improve somewhat over time. Ok to restart coumadin and f/u in my clinic. TRE wrap fingers to elbow for comfort hand exercises/OT Please call with any questions. Yasmany Ovalles MD FACS [employer] medical practice manager [facility] - Heart and Vascular Surgery at [facility] [phone] Yasmany Ovalles MD Sep 29, 2016 11:48
[2016-09-29 12:00] VITALS: BP 104/60; PULSE 65; RESP 18; TEMP 96.1; O2SAT 99
[2016-09-29 13:26] LABS: HEMOGLOBIN A1a 1.4 %; HEMOGLOBIN A1b 2.6 %; HEMOGLOBIN Ao 79.6 %; HEMOGLOBIN LA1C 3.5 %; HEMOGLOBIN P3 7.6 %
[2016-09-29] MEDS: WARFARIN SOD 5 MG TAB PO SCH (15:04)
[2016-09-29 16:00] VITALS: BP 124/76; PULSE 73; RESP 18; TEMP 96.6; O2SAT 98
[2016-09-29 20:44] VITALS: BP 144/70; PULSE 80; RESP 17; TEMP 97.5; O2SAT 98
[2016-09-29] MEDS: TAMSULOSIN HCL 0.4 MG CAP PO SCH (21:11)
[2016-09-29] MEDS: ATORVASTATIN 40 MG TAB PO SCH (21:11)
[2016-09-29] MEDS: LATANOPROST 0.005% OPHT SOLN 2.5 ML BTL EACH EYE SCH (21:12)
[2016-09-29] MEDS: HEPARIN-D5W INJ 250 ML IV SCH (23:22)
[2016-09-30 00:11] VITALS: BP 148/79; PULSE 80; RESP 17; TEMP 97.7; O2SAT 96
[2016-09-30] MEDS: INSULIN ASPART SUPPLEMENTAL SCALE SQ SCH ×4 (06:19→20:52)
--- NOTE | 2016-09-30 07:50 | HHI.PR ---
Subjective Remarks This is an 81-year-old male w/ a PMH of HTN, DM, ESRD on Chronic Anticoagulation presented to the ER with complaints of left arm swelling and pain. Recent admit 09/24-09/26/16 for HD access, S/p LUE AV Fistula by Dr. Ovalles on 09/24/16 in preparation for HD. Reports LUE w/ progressive redness/swelling since time of d/c. On Coumadin, however pt unsure why, no clear indication per review of medical records. Coumadin temporarily held prior to procedure, recently restarted. On arrival, BP 163/77, HR 79, O2 sat 99% on RA, Afebrile. CBC at baseline. Chemistry essentially at baseline. INR 1.0. Doppler LUE positive for DVT. Dr. Whitney consulted by ER physician, will evaluate in a.m. Started on Heparin gtt in ER. 8- AWAIT VASCULAR SURGERY INPUT Patient remains on heparin drip Will need to reload Coumadin since he has the positive DVT in left upper extremity - AWAIT VASCULAR INPUT RELOAD COUMADIN INCREASE TO 10MG PO DAILY HAS POSITIVE DVT IN LEFT UPPER EXTREMITY PATIENT THINKS LESS SWELLING IN LEFT UPPER EXTREMITY ON HEPARIN DRIP DW PT AND RN 8-[address] Ovalles yesterday Continue to load Coumadin Goal INR 2.0-3.0 Continue heparin drip until therapeutic A.m. labs Discussed with patient and RN Objective Vitals Vital Signs Date Time Temp Pulse Resp B/P Pulse Ox O2 Delivery O2 Flow Rate FiO2 09/30/16 00:11 97.7 80 17 148/79 96 09/29/16 20:44 97.5 80 17 144/70 98 09/29/16 16:00 96.6 73 18 124/76 98 09/29/16 12:00 96.1 65 18 104/60 99 09/29/16 08:00 97.0 76 18 130/72 98 I/O 09/29/16 09/29/16 09/29/16 09/30/16 09/30/16 09/30/16 06:59 14:59 22:59 06:59 14:59 22:59 Intake Total 320 ml 480 ml 240 ml 120 ml Output Total 700 ml 300 ml 600 ml Balance -380 ml 480 ml -60 ml -480 ml Intake Oral 240 ml 480 ml 240 ml 120 ml IV Total 80 ml Output Urine Total 700 ml 300 ml 600 ml # Voids 3 # Bowel Movements 0 0 0 0 Result Diagram: 09/29/16 0750 09/29/16 0750 Other Results Laboratory Tests Test 09/29/16 07:50 White Blood Count 10.1 TH/MM3 Red Blood Count 3.54 MIL/MM3 Hemoglobin 10.4 GM/DL Hematocrit 32.6 % Mean Corpuscular Volume 91.9 FL Mean Corpuscular Hemoglobin 29.3 PG Mean Corpuscular Hemoglobin 31.8 % Concent Red Cell Distribution Width 15.8 % Platelet Count 417 TH/MM3 Mean Platelet Volume 8.5 FL Neutrophils (%) (Auto) 76.0 % Lymphocytes (%) (Auto) 9.6 % Monocytes (%) (Auto) 11.2 % Eosinophils (%) (Auto) 2.7 % Basophils (%) (Auto) 0.5 % Neutrophils # (Auto) 7.7 TH/MM3 Lymphocytes # (Auto) 1.0 TH/MM3 Monocytes # (Auto) 1.1 TH/MM3 Eosinophils # (Auto) 0.3 TH/MM3 Basophils # (Auto) 0.1 TH/MM3 CBC Comment DIFF FINAL Differential Comment Prothrombin Time 12.7 SEC Prothromb Time International 1.1 RATIO Ratio Activated Partial 52.1 SEC Thromboplast Time Sodium Level 140 MEQ/L Potassium Level 4.9 MEQ/L Chloride Level 111 MEQ/L Carbon Dioxide Level 19.7 MEQ/L Anion Gap 9 MEQ/L Blood Urea Nitrogen 69 MG/DL Creatinine 3.67 MG/DL Estimat Glomerular Filtration 16 ML/MIN Rate Random Glucose 112 MG/DL Hemoglobin A1c 6.1 % Calcium Level 8.6 MG/DL Phosphorus Level 3.8 MG/DL Magnesium Level 2.5 MG/DL Total Bilirubin 0.3 MG/DL Aspartate Amino Transf 16 U/L (AST/SGOT) Alanine Aminotransferase 14 U/L (ALT/SGPT) Alkaline Phosphatase 69 U/L Total Protein 7.0 GM/DL Albumin 2.8 GM/DL Free Thyroxine 1.02 NG/DL Thyroid Stimulating Hormone 0.419 uIU/ML 3rd Gen Imaging Last Impressions Upper Extremity Ultrasound [id number] Signed Impressions: Service Date/Time: Tuesday, September 27, 2016 22:08 - CONCLUSION: Positive for deep venous thrombosis in the brachial vein. David Joy MD Objective Remarks GENERAL: AWAKE ALERT AND ORIENTED SKIN: Warm and dry. LEFT UE WITH LESS SWELLING AND WARMTH- GOOD THRILL AND BRUIT IN FISTULA less swelling left upper extremity currently wrapped with an Marco A bandage HEAD: Atraumatic. Normocephalic. EYES: Pupils equal and round. No scleral icterus. No injection or drainage. EOMI ENT: No nasal bleeding or discharge. Mucous membranes pink and moist. TONGUE MIDLINE NECK: Trachea midline. No JVD. CARDIOVASCULAR: Regular rate and rhythm. S1,S2 NO S3 OR S4 NO HEAVE OR THRILL RESPIRATORY: No accessory muscle use. Clear to auscultation. Breath sounds equal bilaterally. GASTROINTESTINAL: Abdomen soft, non-tender, nondistended. Hepatic and splenic margins not palpable. MUSCULOSKELETAL: Extremities without clubbing, cyanosis, or edema. No obvious deformities. Left arm with swelling in forearm region and good thrill and bruit around fistulatender left forearmpositive DVT-swelling is less currently left upper extremity is wrapped with an Marco A bandage NEUROLOGICAL: Awake and alert. No obvious cranial nerve deficits. Motor grossly within normal limits. Five out of 5 muscle strength in the arms and legs. Normal speech.LEFT ARM WITH LESS SWELLING IN FOREARM REGION AND GOOD THRILL AND BRUIT AROUND FISTULA- TENDER LEFT FOREARM +DVT PSYCHIATRIC: Appropriate mood and affect; insight and judgment normal. Medications and IVs Current Medications Heparin Sodium (Porcine) (Heparin Inj) 6,000 units ONCE ONCE IV Last administered on 09/28/16 00:27; Start 09/28/16 at 00:15; Stop 09/28/16 at 00:16; Status DC Heparin Sodium (Porcine) (Heparin Inj) 5,000 units UNSCH PRN IV APTT LESS THAN 25; Start 09/28/16 at 06:15 Heparin Sodium (Porcine) 2500 units 2,500 units UNSCH PRN IV APTT 25 TO 39; Start 09/28/16 at 06:15 Heparin Sodium/ Dextrose (Heparin-D5W Inj) 250 ml @ 0 mls/hr TITRATE IV Last administered on 09/29/16 23:22; Start 09/28/16 at 00:15 Dextrose (D50w (Vial) Inj) 50 ml UNSCH PRN IV HYPOGLYCEMIA-SEE COMMENTS; Start 09/28/16 at 00:15 Glucagon (Glucagon Inj) 1 mg UNSCH PRN OTHER HYPOGLYCEMIA-SEE COMMENTS; Start 09/28/16 at 00:15 Insulin Aspart (NovoLOG SUPPLEMENTAL SCALE) 1 ACHS SLIDING SCALE SQ ; Start 09/28/16 at 07:00 Sodium Chloride (NS Flush) 2 ml UNSCH PRN IV FLUSH FLUSH AFTER USING IV ACCESS ; Start 09/28/16 at 00:15 Sodium Chloride (NS Flush) 2 ml BID IV FLUSH Last administered on 09/29/16 09: 00; Start 09/28/16 at 09:00 Ondansetron HCl (Zofran Inj) 4 mg Q6H PRN IVP NAUSEA OR VOMITING; Start at 00:15 Acetaminophen (Tylenol) 650 mg Q6H PRN PO FEVER; Start 09/28/16 at 00:15 Acetaminophen/ Hydrocodone Bitart (Center 5-325 Mg) 1 tab Q4H PRN PO PAIN SCALE 3 TO 5; Start 09/28/16 at 00:15; Stop 09/28/16 at 00:16; Status DC Morphine Sulfate (Morphine Inj) 2 mg Q3H PRN IV Pain 6-10; Start 09/28/16 at 00: 15 Senna/Docusate Sodium (Khadijah-Colace) 1 tab BID PO Last administered on 09/29/16 21:11; Start 09/28/16 at 09:00 Magnesium Hydroxide (Milk Of Magnesia Liq) 30 ml Q12H PRN PO MILD - MODERATE CONSTIPATION Last administered on 09/28/16 06:02; Start 09/28/16 at 00:15 Sennosides (Senokot) 17.2 mg Q12H PRN PO MODERATE - SEVERE CONSTIPATION Last administered on 09/28/16 06:02; Start 09/28/16 at 00:15 Bisacodyl (Dulcolax Supp) 10 mg DAILY PRN RECTAL SEVERE CONSITIPATION; Start at 00:15 Lactulose (Lactulose Liq) 30 ml DAILY PRN PO SEVERE CONSITIPATION; Start at 00:15 Amlodipine Besylate (Norvasc) 5 mg DAILY PO Last administered on 09/29/16 08:26 ; Start 09/28/16 at 09:00 Aspirin (Ecotrin Ec) 81 mg DAILY PO Last administered on 09/29/16 08:26; Start 09/28/16 at 09:00 Atorvastatin Calcium (Lipitor) 40 mg HS PO Last administered on 09/29/16 21:11 ; Start 09/28/16 at 21:00 Cholecalciferol (Vitamin D3) 5,000 units DAILY PO Last administered on 08:26; Start 09/28/16 at 09:00 Fenofibrate (Tricor) 48 mg DAILY PO Last administered on 09/29/16 08:26; Start 09/28/16 at 09:00 Metoprolol Tartrate (Lopressor) 50 mg BID PO Last administered on 09/29/16 21: 11; Start 09/28/16 at 09:00 Oxycodone HCl (Roxicodone) 5 mg Q4H PRN PO PAIN SCALE 1 TO 5 Last administered on 09/29/16 23:51; Start 09/28/16 at 00:15 Tamsulosin HCl (Flomax) 0.4 mg HS PO Last administered on 09/29/16 21:11; Start 09/28/16 at 21:00 Warfarin Sodium (Coumadin) 5 mg DAILY@16 PO Last administered on 09/28/16 16:27 ; Start 09/28/16 at 16:00; Stop 09/29/16 at 08:40; Status DC Patient Own Medication PT OWN MED: SIMBRI... Q8H EACH EYE Last administered on 09/29/16 23:15; Start 09/28/16 at 08:00 Pantoprazole Sodium (Protonix) 40 mg DAILY PO HRT Last administered on 09/29/16 08:26; Start 09/28/16 at 09:00 Patient Own Medication PT OWN MED: VELTASS... DAILY PO Last administered on 09/29 16:47; Start 09/28/16 at 09:00 Latanoprost (Xalatan 0.005% Opt Soln) 1 drop HS EACH EYE Glaucoma Last administered on 09/29/16 21:12; Start 09/28/16 at 21:00 Warfarin Sodium (Coumadin) 10 mg DAILY@16 PO Last administered on 09/29/16 15: 04; Start 09/29/16 at 16:00 Patient Medication Teaching (Coumadin Booklet) 1 ONCE ONCE .XX ; Start 09/29/16 at 16:00; Stop 09/29/16 at 16:01; Status DC Urinary Catheter: No Vascular Central Line Catheter: No A/P Problem List: (1) DVT (deep venous thrombosis) ICD Code: I82.409 Status: Acute Plan: rELOAD cOUMADIN AND SEEN BY VASCULAR SURGERY (2) Subtherapeutic anticoagulation ICD Code: Z51.81 Status: Acute Plan: Reload Coumadin and seen by vascular surgery (3) ESRD (end stage renal disease) ICD Code: N18.6 Status: Acute Plan: Monitor labs Not on hemodialysis yet (4) HTN (hypertension) ICD Code: I10 Status: Acute Plan: hOME MEDICATIONS (5) DM (diabetes mellitus) ICD Code: E11.9 Status: Acute Plan: fOLLOW SUGARS Assessment and Plan 1. DVT: acute onset of LUE swelling/erythema, Doppler LUE w/ acute DVT, recent LUE AV Fistula on 09/24/[address] Ovalles. Vasc Sx consulted by ER physician for further evaluation, currently on Heparin gtt. Will continue Heparin and restart home Coumadin, repeat INR. Needs to be therapeutic before discharge giving Coumadin 10 mg by mouth daily await INR results today 2. Subtherapeutic INR: On Coumadin as outpatient, unclear why. Coumadin held prior to recent procedure, INR currently 1.1. Will continue w/ Heparin as above , restart home Coumadin. Give 10 mg by mouth daily 3. ESRD: Creatinine at baseline, preparations for starting HD, s/p LUE AV Fistula as above. 4. HTN: BP 150-160's, resume home medications, monitor BP. 5. DM: Sliding scale w/ Accu-Cheks, hold Metformin in light of renal insufficiency. Sliding scale coverage 6. DVT: Acute LUE DVT, on Heparin gtt and restarted Coumadin. Continue on Coumadin 10 mg daily since remained subtherapeutic continue on heparin drip- have discussed with Charlette yesterday 7. Social work for d/c planning as needed. 8. Case discussed w/ ER physician at length. Discussed with patient and RN Problem Qualifiers (1) DVT (deep venous thrombosis): Qualified Code: I82.622 - Acute deep vein thrombosis (DVT) of brachial vein of left upper extremity Florencio Santacruz DO Sep 30, 2016 07:50
[2016-09-30] MEDS: SIMBRINZA EYE EACH EYE SCH ×2 (08:00→16:00)
[2016-09-30 08:09] VITALS: BP 166/72; PULSE 75; RESP 20; TEMP 97.6; O2SAT 99
[2016-09-30 08:33] LABS: AUTOMATED NEUTROPHIL # 6.8 TH/MM3 (1.8-7.7); BASOPHIL # 0.1 TH/MM3 (0-0.2); BASOPHIL % 1.1 % (0.0-2.0); EOSINOPHIL # 0.2 TH/MM3 (0-0.4); HEMO FLAGS DIFF FINAL; LYMPH % 13.2 % (9.0-44.0); LYMPHOCYTE # 1.2 TH/MM3 (1.0-4.8); MEAN CORPUSCULAR HEMOGLOBIN 30.3 PG (27.0-34.0); MEAN CORPUSCULAR HGB CONC 33.3 % (32.0-36.0); MONO % 10.1 % (0.0-8.0); NEUT % 73.6 % (16.0-70.0); PLATELET COUNT 362 TH/MM3 (150-450); RED BLOOD COUNT 3.18 MIL/MM3 (4.50-5.90); RED CELL DISTRIBUTION WIDTH 15.5 % (11.6-17.2); WHITE BLOOD COUNT 9.2 TH/MM3 (4.0-11.0)
[2016-09-30 08:46] LABS: APTT (PATIENT) 66.2 SEC (24.3-30.1); INTERNATIONAL NORMALIZED RATIO 1.2 RATIO; PROTHROMBIN TIME - PATIENT 13.6 SEC (9.8-11.6)
[2016-09-30] MEDS: SODIUM CHLORIDE 0.9% FLUSH 10 ML FLUSH IV FLUSH SCH ×2 (09:00→20:52)
[2016-09-30 09:20] LABS: ANION GAP 11 MEQ/L (5-15); AST (GOT) 14 U/L (15-37); BICARBONATE 17.4 MEQ/L (21.0-32.0); BLOOD UREA NITROGEN 64 MG/DL (7-18); CHLORIDE 112 MEQ/L (98-107); GLOMERULAR FILTRATION RATE 16 ML/MIN (>89); MAGNESIUM 2.4 MG/DL (1.5-2.5); POTASSIUM 4.9 MEQ/L (3.5-5.1); SODIUM (NA) 140 MEQ/L (136-145)
[2016-09-30 09:25] LABS: ALKALINE PHOSPHATASE 66 U/L (45-117); ALT (GPT) 12 U/L (12-78); TOTAL BILIRUBIN ADULT 0.3 MG/DL (0.2-1.0)
[2016-09-30] MEDS: PANTOPRAZOLE SOD 40 MG DELAYED RELEASE TAB PO SCH (09:35)
[2016-09-30] MEDS: METOPROLOL TARTRATE 50 MG TAB PO SCH ×2 (09:35→20:52)
[2016-09-30] MEDS: CHOLECALCIFEROL (VIT D3) 5000 UNIT CAP PO SCH (09:35)
[2016-09-30] MEDS: DOCUSATE SODIUM 50 MG/SENNA 8.6 MG TAB PO SCH ×2 (09:35→20:52)
[2016-09-30] MEDS: FENOFIBRATE 48 MG TAB PO SCH (09:35)
[2016-09-30] MEDS: amLODIPine BESYLATE 5 MG TAB PO SCH (09:35)
[2016-09-30] MEDS: ASPIRIN EC 81 MG TABEC PO SCH (09:35)
[2016-09-30 11:05] VITALS: BP 142/62; PULSE 70; RESP 20; TEMP 96.9; O2SAT 98
--- NOTE | 2016-09-30 11:41 | PD.VS.PN ---
Subjective Subjective/Hospital Course LUE with improved swelling Marco A wrap intact + thrill UE warm w/ motor intact Objective Vitals/I&O Date Time Temp Pulse Resp B/P Pulse Ox O2 Delivery O2 Flow Rate FiO2 09/30/16 11:05 96.9 70 20 142/62 98 09/30/16 08:09 97.6 75 20 166/72 99 09/30/16 00:11 97.7 80 17 148/79 96 09/29/16 20:44 97.5 80 17 144/70 98 09/29/16 16:00 96.6 73 18 124/76 98 09/29/16 12:00 96.1 65 18 104/60 99 09/30/16 09/30/16 09/30/16 07:00 15:00 23:00 Intake Total 120 ml Output Total 600 ml Balance -480 ml Physical Exam GENERAL: A&OX3,NAD, GCS15 SKIN: Warm and dry/ LUE Incision intact i/c/d w/o D/R MUSCULOSKELETAL: LUE with improved swelling since last assessment/ BUE warm w/ motor intact + Thrill palpated near AVF No hand pain Laboratory Laboratory Tests Test 09/30/16 08:00 White Blood Count 9.2 Red Blood Count 3.18 Hemoglobin 9.7 Hematocrit 29.0 Mean Corpuscular Volume 91.0 Mean Corpuscular Hemoglobin 30.3 Mean Corpuscular Hemoglobin 33.3 Concent Red Cell Distribution Width 15.5 Platelet Count 362 Mean Platelet Volume 8.8 Neutrophils (%) (Auto) 73.6 Lymphocytes (%) (Auto) 13.2 Monocytes (%) (Auto) 10.1 Eosinophils (%) (Auto) 2.0 Basophils (%) (Auto) 1.1 Neutrophils # (Auto) 6.8 Lymphocytes # (Auto) 1.2 Monocytes # (Auto) 0.9 Eosinophils # (Auto) 0.2 Basophils # (Auto) 0.1 CBC Comment DIFF FINAL Differential Comment Prothrombin Time 13.6 Prothromb Time International 1.2 Ratio Activated Partial 66.2 Thromboplast Time Sodium Level 140 Potassium Level 4.9 Chloride Level 112 Carbon Dioxide Level 17.4 Anion Gap 11 Blood Urea Nitrogen 64 Creatinine 3.59 Estimat Glomerular Filtration 16 Rate Random Glucose 106 Calcium Level 8.5 Phosphorus Level 3.6 Magnesium Level 2.4 Total Bilirubin 0.3 Aspartate Amino Transf 14 (AST/SGOT) Alanine Aminotransferase 12 (ALT/SGPT) Alkaline Phosphatase 66 Total Protein 6.2 Albumin 2.4 Assessment and Plan Plan L UE swelling likely most related to AVF ipsilateral to pacer, which is probably occluding/narrowing subclavian vein. Should improve somewhat over time. Ok to restart Coumadin and f/u in my clinic. Plan Continue anticoagulation therapy Arranged for out patient follow up Continue to MARCO A wrap fingers to elbow for comfort/ while swelling is present Continue hand exercises/OT Reanna [facility]INCON [facility] [phone] Discharge Planning Pt will follow up in our OPC Reanna Perkins Sep 30, 2016 11:41
[2016-09-30 16:00] VITALS: BP 142/83; PULSE 73; RESP 16; TEMP 96.8; O2SAT 100
[2016-09-30] MEDS: WARFARIN SOD 5 MG TAB PO SCH (16:21)
[2016-09-30] MEDS: TAMSULOSIN HCL 0.4 MG CAP PO SCH (20:52)
[2016-09-30] MEDS: MAGNESIUM HYDROXIDE SUSP 30 ML CUP PO PRN (20:52)
[2016-09-30] MEDS: ATORVASTATIN 40 MG TAB PO SCH (20:52)
[2016-09-30] MEDS: LATANOPROST 0.005% OPHT SOLN 2.5 ML BTL EACH EYE SCH (20:53)
[2016-09-30 20:55] VITALS: BP 139/70; PULSE 73; RESP 17; TEMP 96.6; O2SAT 98
[2016-10-01 00:11] VITALS: BP 113/69; PULSE 73; RESP 17; TEMP 96.8; O2SAT 96
[2016-10-01 04:11] VITALS: BP 137/76; PULSE 70; RESP 17; TEMP 96.6; O2SAT 97
[2016-10-01] MEDS: HEPARIN-D5W INJ 250 ML IV SCH (05:55)
[2016-10-01] MEDS: INSULIN ASPART SUPPLEMENTAL SCALE SQ SCH ×4 (06:08→22:01)
--- NOTE | 2016-10-01 07:11 | PD.VS.PN ---
Subjective Subjective/Hospital Course LUE with improved swelling Marco A wrap intact + thrill UE warm w/ motor intact - does complain of 5th digit pain today Objective Vitals/I&O Date Time Temp Pulse Resp B/P Pulse Ox O2 Delivery O2 Flow Rate FiO2 10/01/16 04:11 96.6 70 17 137/76 97 10/01/16 00:11 96.8 73 17 113/69 96 09/30/16 20:55 96.6 73 17 139/70 98 09/30/16 16:00 96.8 73 16 142/83 100 09/30/16 11:05 96.9 70 20 142/62 98 09/30/16 08:09 97.6 75 20 166/72 99 Physical Exam L UE ecchymosis near incision; + thrill palpable radial pulse moderate edema of forearm but marked improvement Laboratory Laboratory Tests Test 09/30/16 08:00 White Blood Count 9.2 Red Blood Count 3.18 Hemoglobin 9.7 Hematocrit 29.0 Mean Corpuscular Volume 91.0 Mean Corpuscular Hemoglobin 30.3 Mean Corpuscular Hemoglobin 33.3 Concent Red Cell Distribution Width 15.5 Platelet Count 362 Mean Platelet Volume 8.8 Neutrophils (%) (Auto) 73.6 Lymphocytes (%) (Auto) 13.2 Monocytes (%) (Auto) 10.1 Eosinophils (%) (Auto) 2.0 Basophils (%) (Auto) 1.1 Neutrophils # (Auto) 6.8 Lymphocytes # (Auto) 1.2 Monocytes # (Auto) 0.9 Eosinophils # (Auto) 0.2 Basophils # (Auto) 0.1 CBC Comment DIFF FINAL Differential Comment Prothrombin Time 13.6 Prothromb Time International 1.2 Ratio Activated Partial 66.2 Thromboplast Time Sodium Level 140 Potassium Level 4.9 Chloride Level 112 Carbon Dioxide Level 17.4 Anion Gap 11 Blood Urea Nitrogen 64 Creatinine 3.59 Estimat Glomerular Filtration 16 Rate Random Glucose 106 Calcium Level 8.5 Phosphorus Level 3.6 Magnesium Level 2.4 Total Bilirubin 0.3 Aspartate Amino Transf 14 (AST/SGOT) Alanine Aminotransferase 12 (ALT/SGPT) Alkaline Phosphatase 66 Total Protein 6.2 Albumin 2.4 Assessment and Plan Plan L UE swelling likely most related to AVF ipsilateral to pacer, which is probably occluding/narrowing subclavian vein. Should improve somewhat over time. on coumadin and INR 1.2 yesterday continue compression and PT/OT for hand ok to d/c from vascular surgery standpoint when anticoagulated Discharge Planning Pt will follow up in our OPC Yasmany Ovalles MD Oct 01, 2016 07:11
[2016-10-01 08:00] VITALS: BP 117/65; PULSE 77; RESP 18; TEMP 97.2; O2SAT 98
[2016-10-01] MEDS: SIMBRINZA EYE EACH EYE SCH ×3 (08:00→15:51)
[2016-10-01] MEDS: METOPROLOL TARTRATE 50 MG TAB PO SCH ×2 (08:49→21:48)
[2016-10-01] MEDS: ASPIRIN EC 81 MG TABEC PO SCH (08:49)
[2016-10-01] MEDS: FENOFIBRATE 48 MG TAB PO SCH (08:49)
[2016-10-01] MEDS: CHOLECALCIFEROL (VIT D3) 5000 UNIT CAP PO SCH (08:49)
[2016-10-01] MEDS: amLODIPine BESYLATE 5 MG TAB PO SCH (08:49)
[2016-10-01] MEDS: PANTOPRAZOLE SOD 40 MG DELAYED RELEASE TAB PO SCH (08:49)
[2016-10-01] MEDS: SODIUM CHLORIDE 0.9% FLUSH 10 ML FLUSH IV FLUSH SCH ×2 (08:50→21:50)
[2016-10-01] MEDS: MAGNESIUM HYDROXIDE SUSP 30 ML CUP PO PRN (08:50)
[2016-10-01] MEDS: DOCUSATE SODIUM 50 MG/SENNA 8.6 MG TAB PO SCH ×2 (08:50→21:48)
[2016-10-01] MEDS: PATIROMER PO SCH (10:07)
[2016-10-01 12:00] VITALS: BP 90/56; PULSE 63; RESP 18; TEMP 95.9; O2SAT 97
[2016-10-01 14:22] LABS: AUTOMATED NEUTROPHIL # 5.4 TH/MM3 (1.8-7.7); BASOPHIL # 0.1 TH/MM3 (0-0.2); BASOPHIL % 1.1 % (0.0-2.0); EOSINOPHIL # 0.2 TH/MM3 (0-0.4); EOSINOPHIL % 3.1 % (0.0-4.0); HEMATOCRIT 29.3 % (39.0-51.0); HEMO FLAGS DIFF FINAL; LYMPH % 13.1 % (9.0-44.0); MEAN CELL VOLUME 91.5 FL (80.0-100.0); MEAN CORPUSCULAR HEMOGLOBIN 29.9 PG (27.0-34.0); MEAN CORPUSCULAR HGB CONC 32.7 % (32.0-36.0); MONO % 10.1 % (0.0-8.0); NEUT % 72.6 % (16.0-70.0); PLATELET COUNT 360 TH/MM3 (150-450); RED CELL DISTRIBUTION WIDTH 15.8 % (11.6-17.2); WHITE BLOOD COUNT 7.5 TH/MM3 (4.0-11.0)
[2016-10-01 14:30] LABS: INTERNATIONAL NORMALIZED RATIO 1.6 RATIO; PROTHROMBIN TIME - PATIENT 17.9 SEC (9.8-11.6)
[2016-10-01 14:31] LABS: APTT (PATIENT) 39.9 SEC (24.3-30.1)
[2016-10-01 14:53] LABS: ALT (GPT) 16 U/L (12-78); ANION GAP 10 MEQ/L (5-15); BICARBONATE 19.1 MEQ/L (21.0-32.0); BLOOD UREA NITROGEN 71 MG/DL (7-18); CHLORIDE 111 MEQ/L (98-107); GLOMERULAR FILTRATION RATE 16 ML/MIN (>89); MAGNESIUM 2.7 MG/DL (1.5-2.5); POTASSIUM 5.2 MEQ/L (3.5-5.1); SODIUM (NA) 140 MEQ/L (136-145)
[2016-10-01 15:00] LABS: ALKALINE PHOSPHATASE 66 U/L (45-117); AST (GOT) 15 U/L (15-37); TOTAL BILIRUBIN ADULT 0.2 MG/DL (0.2-1.0)
[2016-10-01] MEDS: WARFARIN SOD 5 MG TAB PO SCH (15:51)
[2016-10-01 16:00] VITALS: BP 123/64; PULSE 68; RESP 18; TEMP 95.8; O2SAT 99
[2016-10-01 20:50] VITALS: BP 168/73; PULSE 76; RESP 17; TEMP 96.8; O2SAT 99
[2016-10-01] MEDS: TAMSULOSIN HCL 0.4 MG CAP PO SCH (21:48)
[2016-10-01] MEDS: ATORVASTATIN 40 MG TAB PO SCH (21:48)
[2016-10-01] MEDS: LATANOPROST 0.005% OPHT SOLN 2.5 ML BTL EACH EYE SCH (21:49)
--- NOTE | 2016-10-01 23:45 | HHI.PR ---
Subjective Remarks Patient seen this morning around 11:30 AM. Says he's feeling all right. Denies any chest pain or shortness of breath. Says he feels like hed be able to go home Objective Vital Signs Date Time Temp Pulse Resp B/P Pulse Ox O2 Delivery O2 Flow Rate FiO2 10/01/16 20:50 96.8 76 17 168/73 99 10/01/16 16:00 95.8 68 18 123/64 99 10/01/16 12:00 95.9 63 18 90/56 97 10/01/16 08:00 97.2 77 18 117/65 98 10/01/16 04:11 96.6 70 17 137/76 97 10/01/16 00:11 96.8 73 17 113/69 96 I/O 09/30/16 09/30/16 09/30/16 10/01/16 10/01/16 10/01/16 06:59 14:59 22:59 06:59 14:59 22:59 Intake Total 120 ml 720 ml 120 ml 445 ml 600 ml Output Total 600 ml 590 ml 350 ml 400 ml Balance -480 ml 130 ml -230 ml 445 ml 200 ml Intake Oral 120 ml 720 ml 120 ml 600 ml IV Total 445 ml Output Urine Total 600 ml 590 ml 350 ml 400 ml # Voids 1 # Bowel Movements 0 2 0 0 Result Diagram: 10/01/16 1220 10/01/16 1220 Objective Remarks GENERAL: Patient lying in bed. Appears comfortable. SKIN: Warm and dry. HEAD: Normocephalic. EYES: No scleral icterus. No injection or drainage. NECK: Supple, trachea midline. No JVD. CARDIOVASCULAR: Regular rate and rhythm without murmurs, gallops, or rubs. RESPIRATORY: Breath sounds equal bilaterally. No accessory muscle use. GASTROINTESTINAL: Abdomen soft, non-tender, nondistended. MUSCULOSKELETAL: No cyanosis, or edema. BACK: Nontender without obvious deformity. No CVA tenderness. A/P Assessment and Plan 10/01/16 Continue Coumadin. Heparin drip for bridging. Consult hematology to see if there is a way to bridge more effectively. -INR 1.6. Subtherapeutic. //DVT: acute onset of LUE swelling/erythema, Doppler LUE w/ acute DVT, recent LUE AV Fistula on 09/24/[address] Ovalles. Vasc Sx consulted by ER physician for further evaluation, currently on Heparin gtt. Will continue Heparin and restart home Coumadin, repeat INR. Needs to be therapeutic before discharge giving Coumadin 10 mg by mouth daily await INR results today // Subtherapeutic INR: On Coumadin as outpatient, unclear why. Coumadin held prior to recent procedure, INR currently 1.1. Will continue w/ Heparin as above , restart home Coumadin. Give 10 mg by mouth daily // ESRD: Creatinine at baseline, preparations for starting HD, s/p LUE AV Fistula as above. //HTN: BP 150-160's, cont home medications, monitor BP. //DM: Sliding scale w/ Accu-Cheks, hold Metformin in light of renal insufficiency. cont Sliding scale coverage //DVT: Acute LUE DVT, on Heparin gtt and restarted Coumadin. Continue on Coumadin 10 mg daily since remained subtherapeutic continue on heparin drip -Consult hematology for assistance Discharge Planning Discharge when INR therapeutic. Parrish Ta MD Oct 01, 2016 23:45
[2016-10-02] MEDS: HEPARIN-D5W INJ 250 ML IV SCH (00:02)
[2016-10-02] MEDS: SIMBRINZA EYE EACH EYE SCH ×2 (00:03→08:00)
[2016-10-02 00:45] VITALS: BP 145/73; PULSE 76; RESP 18; TEMP 97.6; O2SAT 97
[2016-10-02 04:20] VITALS: BP 164/83; PULSE 79; RESP 19; TEMP 97.3; O2SAT 96
[2016-10-02] MEDS: INSULIN ASPART SUPPLEMENTAL SCALE SQ SCH ×2 (06:25→11:00)
[2016-10-02 07:30] VITALS: BP 171/84; PULSE 86; RESP 18; TEMP 97; O2SAT 96
--- NOTE | 2016-10-02 07:42 | MB ---
cc: JANELL WILSON DATE OF CONSULTATION 10/01/2016 DATE OF 1935 REASON FOR CONSULTATION Patient with left upper extremity deep vein thrombosis in the brachial vein. CHIEF COMPLAINT Left arm swelling. HISTORY OF PRESENT ILLNESS Mr. Buenrostro is an 81-year-old male with a past medical history of hypertension, diabetes, and end-stage renal disease. He is also on chronic anticoagulation presumably for a history of atrial fibrillation. He was unable to clearly tell me why he was on anticoagulation in the past. He states that his senior internal auditor placed him on Coumadin and he has been on it for several years. The patient recently had left upper extremity AV fistula created by Dr. Ovalles on 09/24/2016. He was subsequently discharged from the hospital. Prior to this procedure, Coumadin was stopped a few days. Post procedure, he was subtherapeutic. He subsequently developed a left upper extremity redness and swelling. He presented to the emergency room. Imaging of the left upper extremity showed a deep vein thrombosis in the brachial vein. The patient was started on heparin GTT in the emergency room. His Coumadin has been restarted. I have been consulted to make further recommendations for this patient who has developed a left upper extremity deep vein thrombosis. This is an elderly patient who is quite active at home. He denies any tobacco abuse. No illicit drug use. He usually drinks alcohol. PAST MEDICAL HISTORY 1. Hypertension 2. Diabetes 3. End-stage renal disease 4. History of atrial fibrillation on chronic anticoagulation. PAST SURGICAL HISTORY 1. Gastrectomy 2. Pacemaker placement 3. Hernia repair 4. Cataract surgery 5. Lithotripsy 6. Right foot surgery 7. Left upper extremity AV fistula MEDICATIONS 1. Coumadin 10 mg p.o. daily 2. Atorvastatin 40 mg daily 3. Tamsulosin 0.4 mg p.o. q.h.s. 4. Senna 5. Amlodipine 1 mg p.o. daily 6. Aspirin 81 mg daily 7. Cholecalciferol 5000 units daily 8. Fenofibrate 48 mg daily 9. Metoprolol 50 mg p.o. b.i.d. 10. Protonix 40 mg p.o. daily 11. Sliding scale insulin 12. Heparin GTT 13. Zofran 4 mg IV q.6 h p.r.n. 14. Tylenol 650 p.o. p.r.n. 15. Morphine 2 mg IV daily q3 hours' p.r.n. 16. Milk of magnesia 30 cc p.o. p.r.n. 17. Senna 17.2 mg p.o. q.12 h p.r.n. 18. Dulcolax 10 mg p.r.n. 19. Lactulose 30 cc p.r.n. 20. Roxicodone 5 mg p.o. q.4 h p.r.n. ALLERGIES NO KNOWN DRUG ALLERGIES. FAMILY HISTORY Reviewed and is noncontributory to this admission. SOCIAL HISTORY He is retired. He does not smoke cigarettes. No illicit drug use. Occasional alcohol use as stated above. PHYSICAL EXAMINATION VITAL SIGNS: Blood pressure is 123/64, pulse is in the 60s, temperature is 96.8, O2 sats are 99% on room air, respiratory rate is 18. GENERAL: A well-developed, well-nourished elderly male in no apparent distress. HEENT: Pupils are equal, round and reactive to light. EOMI. No oral lesions. NECK: Supple. No JVD, no bruits. No lymphadenopathy. CHEST: Clear to auscultation bilaterally. CARDIAC: Irregularly irregular heart rate. No murmurs. No gallops. ABDOMEN: Soft, nontender and nondistended. Bowel sounds are present. EXTREMITIES: Left upper extremity wrapped in bandage. Denies any tenderness. Lower extremities without any edema, erythema or cyanosis. SKIN: Without any petechiae, lesion, or bruises. NEUROLOGIC: No focal deficits. PSYCHIATRIC: Mood and affect is appropriate. LABORATORY DATA WBC 7.5, hemoglobin 9.6, platelet count 360, MCV 91.5. Serum chemistries show a sodium of 140, potassium 5.2, chloride 111, CO2 19.1, BUN 71, creatinine 3.66, AST 13, ALT 60, alk phos 56, total protein 6.3, albumin is 2.4. Coags PT is 17.9, INR is 1.6. IMAGING STUDIES Reviewed in the EMR. ASSESSMENT/PLAN This is an 81-year-old male with a past medical history of atrial fibrillation, hypertension, diabetes, end-stage renal disease status post AV fistula placement in preparation for hemodialysis, history of atrial fibrillation with chronic anticoagulation who developed left upper extremity swelling and was found to have deep venous thrombosis of the brachial vein. 1. Left upper extremity DVT in the setting of recent AV fistula placement. The patient was not on Coumadin at that time. Since this DVT has occurred in the setting of a fistula placement, I would simply recommend restarting the Coumadin. He has been on Coumadin for atrial fibrillation and he will remain on it indefinitely. He can follow up in the hematology clinic in four to five weeks. I will obtain an outpatient Doppler ultrasound in six months time. Make sure that the deep venous thrombosis has resolved. 2. End-stage renal disease. He is about to begin dialysis. 3. The heparin can be stopped once his INR is above two. The patient can be discharged from hematology standpoint once his INR is therapeutic. Outpatient follow up in hematology clinic in four to five weeks. MD ANGELIKA Jiménez/MICHELLE /1:33 AM /7:19 AM
[2016-10-02 08:25] LABS: AUTOMATED NEUTROPHIL # 6.8 TH/MM3 (1.8-7.7); BASOPHIL # 0.1 TH/MM3 (0-0.2); EOSINOPHIL # 0.3 TH/MM3 (0-0.4); EOSINOPHIL % 3.5 % (0.0-4.0); HEMATOCRIT 30.9 % (39.0-51.0); HEMO FLAGS DIFF FINAL; LYMPH % 13.7 % (9.0-44.0); LYMPHOCYTE # 1.3 TH/MM3 (1.0-4.8); MEAN CELL VOLUME 92.3 FL (80.0-100.0); MEAN CORPUSCULAR HGB CONC 32.5 % (32.0-36.0); MONO % 11.1 % (0.0-8.0); NEUT % 70.7 % (16.0-70.0); PLATELET COUNT 393 TH/MM3 (150-450); RED BLOOD COUNT 3.34 MIL/MM3 (4.50-5.90); RED CELL DISTRIBUTION WIDTH 15.8 % (11.6-17.2); WHITE BLOOD COUNT 9.6 TH/MM3 (4.0-11.0)
[2016-10-02 08:26] LABS: APTT (PATIENT) 62.2 SEC (24.3-30.1)
[2016-10-02 08:39] LABS: MAGNESIUM 2.7 MG/DL (1.5-2.5); POTASSIUM 5.1 MEQ/L (3.5-5.1)
[2016-10-02] MEDS: SODIUM CHLORIDE 0.9% FLUSH 10 ML FLUSH IV FLUSH SCH (09:00)
[2016-10-02] MEDS: DOCUSATE SODIUM 50 MG/SENNA 8.6 MG TAB PO SCH (09:00)
[2016-10-02] MEDS: PANTOPRAZOLE SOD 40 MG DELAYED RELEASE TAB PO SCH (09:13)
[2016-10-02] MEDS: FENOFIBRATE 48 MG TAB PO SCH (09:14)
[2016-10-02] MEDS: amLODIPine BESYLATE 5 MG TAB PO SCH (09:14)
[2016-10-02] MEDS: CHOLECALCIFEROL (VIT D3) 5000 UNIT CAP PO SCH (09:14)
[2016-10-02] MEDS: ASPIRIN EC 81 MG TABEC PO SCH (09:14)
[2016-10-02] MEDS: METOPROLOL TARTRATE 50 MG TAB PO SCH (09:14)
[2016-10-02] MEDS: PATIROMER PO SCH (09:15)
[2016-10-02] MEDS ORDERED: WARF-18 PO (10:13)
--- NOTE | 2016-10-02 10:16 | HHI.FF ---
Face to Face Verification Diagnosis: (1) Subtherapeutic anticoagulation (2) DM (diabetes mellitus) (3) CKD (chronic kidney disease) stage 4, GFR 15-29 ml/min (4) ESRD (end stage renal disease) Physical Therapy Order: Evaluate and Treat Home Health Nursing Order: Diabetic education Nursing assessment with vital signs Instructions: Home health nurse for medication management. Patient to be followed with primary care for INR checks, however will need home health nurse to organize meds and encourage compliance. I have seen patient Gurpreet Buenrostro on 10/02/16. My clinical findings support the need for the requested home health care services because: Med compliance is questionable I certify that my clinical findings support that this patient is homebound because: Unsafe to leave home unassisted Parrish Ta MD Oct 02, 2016 10:15
[2016-10-02 11:26] VITALS: BP 123/67; PULSE 70; RESP 18; TEMP 96.5; O2SAT 100
--- NOTE | 2016-10-02 15:30 | HHI.PR ---
Subjective Remarks Patient seen this morning around 10:30 AM. Denies any chest pain. He does report fatigue with activity, however denies any shortness of breath without activity. Positive bowel movement. Objective Vital Signs Date Time Temp Pulse Resp B/P Pulse Ox O2 Delivery O2 Flow Rate FiO2 10/02/16 11:26 96.5 70 18 123/67 100 10/02/16 07:30 97.0 86 18 171/84 96 10/02/16 04:20 97.3 79 19 164/83 96 10/02/16 00:45 97.6 76 18 145/73 97 10/01/16 20:50 96.8 76 17 168/73 99 10/01/16 16:00 95.8 68 18 123/64 99 I/O 10/01/16 10/01/16 10/01/16 10/02/16 10/02/16 10/02/16 07:00 15:00 23:00 07:00 15:00 23:00 Intake Total 120 ml 445 ml 840 ml 240 ml 692 ml Output Total 350 ml 400 ml 250 ml Balance -230 ml 445 ml 440 ml -10 ml 692 ml Intake Oral 120 ml 840 ml 240 ml 650 ml IV Total 445 ml 42 ml Output Urine Total 350 ml 400 ml 250 ml # Voids 3 5 # Bowel Movements 0 0 0 0 Result Diagram: 10/02/1670910/02/16709 Objective Remarks GENERAL: Patient lying in bed. Appears comfortable. Alert and oriented 3. SKIN: Warm and dry. HEAD: Normocephalic. EYES: No scleral icterus. No injection or drainage. NECK: Supple, trachea midline. No JVD. CARDIOVASCULAR: Regular rate and rhythm without murmurs, gallops, or rubs. RESPIRATORY: Breath sounds equal bilaterally. No accessory muscle use. GASTROINTESTINAL: Abdomen soft, non-tender, nondistended. MUSCULOSKELETAL: No cyanosis, or edema. BACK: Nontender without obvious deformity. No CVA tenderness. A/P Assessment and Plan 10/02/16 //Left upper extremity DVT-INR 2.0. Therapeutic. We'll order home health for medication management. Patient feels this would be beneficial. Appreciate hematology assistance. Will decrease warfarin to 7.5 daily, As INR did rise quite quickly. Follow-up with hematology as outpatient. -Creatinine 3.8 relatively stable. BUN 64, improved from yesterday. //DVT: acute onset of LUE swelling/erythema, Doppler LUE w/ acute DVT, recent LUE AV Fistula on 09/24/[address] Ovalles. Vasc Sx consulted by ER physician for further evaluation, currently on Heparin gtt. Will continue Heparin and restart home Coumadin, repeat INR. Needs to be therapeutic before discharge giving Coumadin 10 mg by mouth daily await INR results today // Subtherapeutic INR: On Coumadin as outpatient, unclear why. Coumadin held prior to recent procedure, INR currently 1.1. Will continue w/ Heparin as above , restart home Coumadin. Give 10 mg by mouth daily // ESRD: Creatinine at baseline, preparations for starting HD, s/p LUE AV Fistula as above. //HTN: BP 150-160's, cont home medications, monitor BP. //DM: Sliding scale w/ Accu-Cheks, hold Metformin in light of renal insufficiency. cont Sliding scale coverage //DVT: Acute LUE DVT, on Heparin gtt and restarted Coumadin. Continue on Coumadin 10 mg daily since remained subtherapeutic continue on heparin drip -Consult hematology for assistance Discharge Planning Discharge when INR therapeutic. Parrish Ta MD Oct 02, 2016 15:29
--- NOTE | 2016-10-02 15:34 | HHI.DS ---
Discharge Summary Admission Date Sep 28, 2016 at 00:09 Discharge Date: Oct 02, 2016 Admitting Diagnosis left upper extremity DVT, stage IV renal dysfunction (1) DVT (deep venous thrombosis) ICD Code: I82.409 (2) Subtherapeutic anticoagulation ICD Code: Z51.81 (3) ESRD (end stage renal disease) ICD Code: N18.6 (4) HTN (hypertension) ICD Code: I10 (5) DM (diabetes mellitus) ICD Code: E11.9 Procedures AV fistula left forearm vascular surgery. Please see report. Brief History - From Admission This is an 81-year-old male w/ a PMH of HTN, DM, ESRD on Chronic Anticoagulation presented to the ER with complaints of left arm swelling and pain. Recent admit 09/24-09/26/16 for HD access, S/p LUE AV Fistula by Dr. Ovalles on 09/24/16 in preparation for HD. Reports LUE w/ progressive redness/swelling since time of d/c. On Coumadin, however pt unsure why, no clear indication per review of medical records. Coumadin temporarily held prior to procedure, recently restarted. On arrival, BP 163/77, HR 79, O2 sat 99% on RA, Afebrile. CBC at baseline. Chemistry essentially at baseline. INR 1.0. Doppler LUE positive for DVT. Dr. Whitney consulted by ER physician, will evaluate in a.m. Started on Heparin gtt in ER. CBC/BMP: 10/02/16 0710 10/02/16 0710 Significant Findings Laboratory Tests Test 09/30/16 10/01/16 10/02/16 08:00 12:20 07:10 Red Blood Count 3.18 MIL/MM3 3.20 MIL/MM3 3.34 MIL/MM3 (4.50-5.90) (4.50-5.90) (4.50-5.90) Hemoglobin 9.7 GM/DL 9.6 GM/DL 10.0 GM/DL (13.0-17.0) (13.0-17.0) (13.0-17.0) Hematocrit 29.0 % 29.3 % 30.9 % (39.0-51.0) (39.0-51.0) (39.0-51.0) Neutrophils (%) (Auto) 73.6 % 72.6 % 70.7 % (16.0-70.0) (16.0-70.0) (16.0-70.0) Monocytes (%) (Auto) 10.1 % 10.1 % 11.1 % (0.0-8.0) (0.0-8.0) (0.0-8.0) Prothrombin Time 13.6 SEC 17.9 SEC 23.0 SEC (9.8-11.6) (9.8-11.6) (9.8-11.6) Activated Partial 66.2 SEC 39.9 SEC 62.2 SEC Thromboplast Time (24.3-30.1) (24.3-30.1) (24.3-30.1) Chloride Level 112 MEQ/L 111 MEQ/L 111 MEQ/L (98-107) (98-107) (98-107) Carbon Dioxide Level 17.4 MEQ/L 19.1 MEQ/L 18.0 MEQ/L (21.0-32.0) (21.0-32.0) (21.0-32.0) Blood Urea Nitrogen 64 MG/DL (7-18) 71 MG/DL (7-18) 64 MG/DL (7-18) Creatinine 3.59 MG/DL 3.66 MG/DL 3.81 MG/DL (0.60-1.30) (0.60-1.30) (0.60-1.30) Estimat Glomerular Filtration 16 ML/MIN (>89) 16 ML/MIN (>89) 15 ML/MIN (>89) Rate Aspartate Amino Transf 14 U/L (15-37) (AST/SGOT) Total Protein 6.2 GM/DL 6.3 GM/DL (6.4-8.2) (6.4-8.2) Albumin 2.4 GM/DL 2.4 GM/DL 2.6 GM/DL (3.4-5.0) (3.4-5.0) (3.4-5.0) Potassium Level 5.2 MEQ/L (3.5-5.1) Random Glucose 138 MG/DL 109 MG/DL (74-106) (74-106) Magnesium Level 2.7 MG/DL 2.7 MG/DL (1.5-2.5) (1.5-2.5) Monocytes # (Auto) 1.1 TH/MM3 (0-0.9) Imaging Last Impressions Upper Extremity Ultrasound 09/27/162051 Signed Impressions: Service Date/Time: Tuesday, September 27, 2016 22:08 - CONCLUSION: Positive for deep venous thrombosis in the brachial vein. David Joy MD PE at Discharge GENERAL: AWAKE ALERT AND ORIENTED SKIN: Warm and dry. LEFT UE WITH LESS SWELLING AND WARMTH- GOOD THRILL AND BRUIT IN FISTULA less swelling left upper extremity currently wrapped with an Marco A bandage HEAD: Atraumatic. Normocephalic. EYES: Pupils equal and round. No scleral icterus. No injection or drainage. EOMI ENT: No nasal bleeding or discharge. Mucous membranes pink and moist. TONGUE MIDLINE NECK: Trachea midline. No JVD. CARDIOVASCULAR: Regular rate and rhythm. S1,S2 NO S3 OR S4 NO HEAVE OR THRILL RESPIRATORY: No accessory muscle use. Clear to auscultation. Breath sounds equal bilaterally. GASTROINTESTINAL: Abdomen soft, non-tender, nondistended. Hepatic and splenic margins not palpable. MUSCULOSKELETAL: Extremities without clubbing, cyanosis, or edema. No obvious deformities. Left arm with swelling in forearm region and good thrill and bruit around fistulatender left forearmpositive DVT-swelling is less currently left upper extremity is wrapped with an Marco A bandage NEUROLOGICAL: Awake and alert. No obvious cranial nerve deficits. Motor grossly within normal limits. Five out of 5 muscle strength in the arms and legs. Normal speech.LEFT ARM WITH LESS SWELLING IN FOREARM REGION AND GOOD THRILL AND BRUIT AROUND FISTULA- TENDER LEFT FOREARM +DVT PSYCHIATRIC: Appropriate mood and affect; insight and judgment normal. Hospital Course 10/02/16 //Left upper extremity DVT-INR 2.0. Therapeutic. We'll order home health for medication management. Patient feels this would be beneficial. Appreciate hematology assistance. Will decrease warfarin to 7.5 daily, As INR did rise quite quickly. Follow-up with hematology as outpatient. -Creatinine 3.8 relatively stable. BUN 64, improved from yesterday. //DVT: acute onset of LUE swelling/erythema, Doppler LUE w/ acute DVT, recent LUE AV Fistula on 09/24/[address] Ovalles. Vasc Sx consulted by ER physician for further evaluation, currently on Heparin gtt. Will continue Heparin and restart home Coumadin, repeat INR. Needs to be therapeutic before discharge giving Coumadin 10 mg by mouth daily await INR results today // Subtherapeutic INR: On Coumadin as outpatient, unclear why. Coumadin held prior to recent procedure, INR currently 1.1. Will continue w/ Heparin as above , restart home Coumadin. Give 10 mg by mouth daily // ESRD: Creatinine at baseline, preparations for starting HD, s/p LUE AV Fistula as above. //HTN: BP 150-160's, cont home medications, monitor BP. //DM: Sliding scale w/ Accu-Cheks, hold Metformin in light of renal insufficiency. cont Sliding scale coverage //DVT: Acute LUE DVT, on Heparin gtt and restarted Coumadin. Continue on Coumadin 10 mg daily since remained subtherapeutic continue on heparin drip -Consult hematology for assistance Pt Condition on Discharge: Good Discharge Disposition: Disch w/ Home Health Serv Discharge Time: > 30 minutes Discharge Instructions DIET: Follow Instructions for: Diabetic Diet, Coumadin (Warfarin) Diet Activities you can perform: Regular-No Restrictions Follow up Referrals: Oncology - 3 Weeks with Pedro Mcdaniel MD PCP Follow-up - 3-5 Days with Evonne Calixto MD SNF/INTERMEDIATE/ with [facility] Vascular Surgery - 1 Week with Yasmany Ovalles MD New Medications: Warfarin (Warfarin) 2.5 Mg Tab 7.5 MG PO DAILY Blood Clot Prevention Days 30 Ref 0 TAB Continued Medications: Amlodipine (Amlodipine) 5 Mg Tab 5 MG PO DAILY Blood Pressure Management #[address] Ref [address] (Aspir-81) 81 Mg Tabdr 1 TAB PO DAILY Atorvastatin (Atorvastatin) 40 Mg Tab 40 MG PO HS Cholesterol Management #30 Ref 0 TAB Brinzolamide-Brimonidine Opth Drops (Simbrinza Opth Drops) 1-0.2% Susp 1 DROP EACH EYE Q8HR Intraocular Pressure #1 Ref 0 BOTTLE Cholecalciferol (Vitamin D3) 5,000 Unit Cap 5000 UNITS PO DAILY Nutritional Supplement #30 Ref 0 CAP Esomeprazole (Nexium) 40 Mg Pkt 1 TAB PO DAILY Heartburn Management Fenofibrate (Fenofibrate) 48 Mg Tab 48 MG PO DAILY chol #30 Ref 0 TAB Metoprolol Tartrate (Metoprolol Tartrate) 50 Mg Tab 50 MG PO BID Blood Pressure Management #60 Ref 0 TAB Oxycodone (Oxycodone) 5 Mg Tab 5 MG PO Q4H PRN PAIN SCALE 1 TO 5 #30 Ref 0 TAB Patiromer Sorbitex Calcium (Veltassa) 16.8 Gm Pow 1 GM PO DAILY Tamsulosin (Tamsulosin) 0.4 Mg Cap 0.4 MG PO HS Manage Prostate Problems #30 Ref 0 CAP Travoprost Opth Drops (Travatan Z Opth Drops) 0.004 % Soln 1 DROP EACH EYE HS Glaucoma #1 Ref 0 BOTTLE Discontinued Medications: Metformin (Metformin) 500 Mg Tab Unknown Dose PO DAILY With a meal Blood Sugar Management #30 Ref 0 TAB Warfarin (Warfarin) 5 Mg Tab 5 MG PO DAILY Blood Clot Prevention #30 Ref 0 TAB Parrish Ta MD Oct 02, 2016 15:34
== END 2016-10-02 16:14 | disposition home health service (06) | DRG 299 ==
LOC: NEPE 20:05 → NEDA 09-28 00:09 → N06A 09-28 01:26
PROVIDERS: ADMIT Internal Medicine; ATTEND Internal Medicine
DX: I82.622 Acute embolism and thrombosis of deep veins of left upper extremity (principal); N18.6 End stage renal disease; I12.0 Hypertensive chronic kidney disease with stage 5 chronic kidney disease or end stage renal disease; E11.22 Type 2 diabetes mellitus with diabetic chronic kidney disease; R79.1 Abnormal coagulation profile; Z79.01 Long term (current) use of anticoagulants; I48.91 Unspecified atrial fibrillation; E78.5 Hyperlipidemia, unspecified; I82.A12 Acute embolism and thrombosis of left axillary vein; K21.9 Gastro-esophageal reflux disease without esophagitis; H40.9 Unspecified glaucoma; H91.90 Unspecified hearing loss, unspecified ear; Z86.73 Personal history of transient ischemic attack (TIA), and cerebral infarction without residual deficits; Z95.0 Presence of cardiac pacemaker; Z99.2 Dependence on renal dialysis; M54.5 Low back pain; Z85.828 Personal history of other malignant neoplasm of skin; Z87.440 Personal history of urinary (tract) infections; Z90.3 Acquired absence of stomach [part of]
CPT/HCPCS: 80048; 80053; 80069; 82948; 83036; 83735; 84100; 84439; 84443; 85025; 85610; 85730; 93971; 96376; 99285; G0378; J1644; J1815; J2765